=== PATIENT | male | born 1955 | race Hispanic/Latino ===

== ENCOUNTER 2023-12-27 12:41 | Emergency (ER) | payer OTHER, MEDICARE ==
[~2023-12-27] VITALS: Ht 165.1 cm; Wt 70.3 kg
[~2023-12-27 12:41] MED LIST: AMLODIPINE PO; FEBU40TA PO; FURO40TA5 PO; HYDRALAZINE PO; LANTUS SQ; METOPROLOL PO; NOVOLOG 70/30 SQ; PREG75 PO; RANITIDINE; TAMS0.4C32 PO
[2023-12-27 14:14] LABS: BASOPHILS # (AUTO) 0.03 K/uL (0.00-0.20); BASOPHILS % (AUTO) 0.3 % (0.0-5.0); EOSINOPHILS # (AUTO) 0.09 K/uL (0.00-0.70); EOSINOPHILS % (AUTO) 0.8 % (0.0-8.0); HEMATOCRIT 47.7 % (42-54); LYMPHOCYTES # (AUTO) 0.8 K/uL (1.0-4.8); LYMPHOCYTES % (AUTO) 7.1 % (21.0-51.0); MEAN CORPUSCULAR HEMOGLOBIN 29.7 pg (27.0-33.0); MEAN CORPUSCULAR HGB CONC 33.1 g/dL (32.0-36.0); MEAN CORPUSCULAR VOLUME 89.7 fL (79-99); MONOCYTES # (AUTO) 1.1 K/uL (0.1-1.0); MONOCYTES % (AUTO) 9.2 % (3.0-13.0); NEUTROPHILS # (AUTO) 9.6 K/uL (1.8-7.7); NEUTROPHILS % (AUTO) 81.7 % (40.0-77.0); PLATELET COUNT (AUTO) 189 K/uL (130-400); RED BLOOD CELL COUNT(AUTO) 5.32 MIL/uL (4.50-6.20); RED CELL DISTRIBUTION WIDTH 13.5 % (11.0-15.5); WHITE BLOOD COUNT (AUTO) 11.7 K/uL (4.8-10.8)
[2023-12-27 14:26] LABS: CREATININE 1.5 mg/dL (0.5-1.5); POTASSIUM 4.3 mmol/L (3.5-5.1)
[2023-12-27 14:27] LABS: INR <= 0.93 (0.85-1.15); PROTHROMBIN TIME 10.6 SEC (9.6-11.6)
[2023-12-27 14:29] LABS: PARTIAL THROMBOPLASTIN TIME 30.2 SEC (26.3-35.5)
[2023-12-27 14:31] LABS: BILIRUBIN,TOTAL 0.7 mg/dL (0.2-1.0); TOTAL PROTEIN, SERUM 7.2 g/dL (6.0-8.3)
[2023-12-27 15:01] LABS: WBC MORPHOLOGY CONSISTENT W/DIFF
[2023-12-27 15:29] VITALS: BP 144/7; PULSE 65; RESP 20; O2SAT 100
[2023-12-27] MEDS ORDERED: DICL100G32 TP (15:35)
== END 2023-12-27 15:57 | disposition home or self-care (01) ==
LOC: EDH 12:41
DX: S86.111A Strain of other muscle(s) and tendon(s) of posterior muscle group at lower leg level, right leg, initial encounter (principal); I10 Essential (primary) hypertension; E11.9 Type 2 diabetes mellitus without complications; E78.00 Pure hypercholesterolemia, unspecified; Z79.899 Other long term (current) drug therapy; Z90.49 Acquired absence of other specified parts of digestive tract; Z94.0 Kidney transplant status; Z88.8 Allergy status to other drugs, medicaments and biological substances; X58.XXXA Exposure to other specified factors, initial encounter; Y93.89 Activity, other specified; Y92.89 Other specified places as the place of occurrence of the external cause; Y99.8 Other external cause status
CPT/HCPCS: 36415; 80053; 85025; 85610; 85730; 93971

== ENCOUNTER → 2025-02-01 | Outpatient (CLI) | payer OTHER, MEDICARE ==
[~2025-02-01] MED LIST changes: +DICL100G32 TP
--- NOTE | 2025-02-01 14:46 | HMCIMG ---
LEFT HAND RADIOGRAPHS - 3 VIEWS INDICATION: Third digit injury COMPARISON: None FINDINGS: AP, lateral, and oblique views. No acute fracture of subluxation identified. Scaphoid bone is intact. Carpal alignment and ulnar variance is within normal limits. Extensive arterial wall calcific plaque. IMPRESSION: No evidence for fracture or subluxation.
== END | disposition home or self-care (01) ==
LOC: RAH 14:09
PROVIDERS: ATTEND Physician Assistant Medical
DX: M79.645 Pain in left finger(s) (principal); M79.642 Pain in left hand; I70.8 Atherosclerosis of other arteries
CPT/HCPCS: 73130

== ENCOUNTER 2025-05-03 08:31 | Inpatient (IN) | payer OTHER, MEDICARE ==
[~2025-05-03] VITALS: Ht 162.6 cm; Wt 71.1 kg
[2025-05-03] MEDS: 0.9%NACL 1000ML 1,000 ML IV ONE (09:23)
[2025-05-03 09:32] LABS: IMMATURE GRANULOCYTE ABSOLUTE 0.05 K/uL (0-1); NUCLEATED RED BLOOD CELLS 0.0 % (0.0-0.19); PLATELET COUNT (AUTO) 163 K/uL (130-400); RED BLOOD CELL COUNT(AUTO) 5.25 MIL/uL (4.50-6.20); RED CELL DISTRIBUTION WIDTH 14.1 % (11.0-15.5); WHITE BLOOD COUNT (AUTO) 9.4 K/uL (4.8-10.8)
[2025-05-03 09:45] LABS: ASPARTATE AMINOTRANSFERASE 51.0 U/L (10-37); CREATININE 1.7 mg/dL (0.5-1.3); GLOMERULAR FILTR. RATE CALC 43.0 mL/min (>90); GLUCOSE,RANDOM 92.0 mg/dL (70-105); SODIUM SERUM 140.0 mmol/L (136-145); TOTAL PROTEIN, SERUM 7.3 g/dL (6.0-8.3); UREA NITROGEN, BLOOD 31.0 mg/dL (7-18)
[2025-05-03 10:13] LABS: APPEARANCE,URINE CLEAR (CLEAR); GLUCOSE, URINE (UA) NEGATIVE (NEGATIVE); LEUKOCYTE ESTERASE ,URINE NEGATIVE Leu/uL (NEGATIVE); NITRATE,URINE NEGATIVE (NEGATIVE); OCCULT BLOOD,URINE SMALL (NEGATIVE)
[2025-05-03 10:19] LABS: ADD UA MICROSCOPIC YES; SQUAMOUS EPITHELIAL CELL,UR RARE /HPF (0-2)
--- NOTE | 2025-05-03 10:34 | ERN ---
General Chief Complaint: Diarrhea Stated Complaint: DIARRHEA Time Seen by MD: 08:35 Source: patient History of Present Illness Initial Comments Patient is a 69-year-old gentleman coming in complaining of diarrhea. Per patient he was outside working in the sun and felt very weak decided to come in for further evaluation. Patient does has a history of kidney transplant. He states he took some medication for diarrhea. Allergies: Coded Allergies: metformin (Unverified Allergy, Severe, KIDNEY PROBLEM, 06/28/14) Home Meds Active Scripts Diclofenac Sodium (Diclofenac Sodium) 3 % Gel..gram., 100 GM TP TID for MUSCLE PAIN, #60 GM Apply small amount to affected muscle 3 times a day and massage in for 7 days. Prov:DANIELLE CAMPUZANO PRESSFITTER 12/27/23 Reported Medications [Ranitidine] No Conflict Check, 150 MG PRN for PRN 06/28/14 [Hydralazine] No Conflict Check, 10 MG PO TID 06/28/14 [Novolog 70/30] No Conflict Check, SQ 06/28/14 [Lantus] No Conflict Check, SQ HS 06/28/14 Febuxostat (Uloric) 40 Mg Tablet, 40 MG PO PM, TAB 06/28/14 Pregabalin (Lyrica) 75 Mg Cap, 75 MG PO TID, CAP 06/28/14 Tamsulosin HCl (Tamsulosin HCl) 0.4 Mg Cap.er.24h, 0.4 MG PO DAILY, CAPSULE.DR 06/28/14 Furosemide (Furosemide) 40 Mg Tablet, 40 MG PO DAILY PRN for PRN, TAB 06/28/14 [Metoprolol] No Conflict Check, 100 MG PO PM 06/28/14 [Amlodipine] No Conflict Check, 10 MG PO DAILY 06/28/14 Past Medical History Past Medical History: Diabetes-Type II, High Cholesterol, Hypertension, Renal Disese, Renal Failure Medical History Other: HX OF HEMODIALYSIS Past Surgical History: Cholecystectomy, Other Surgical History Other: KIDNEY TRANSPLANT ROS Dictation CONSTITUTIONAL: No chills, no fever, no weakness, no diaphoresis, no malaise. HEAD/FACE: No signs of trauma. EENT: No eye pain, no blurred vision, no tearing, no double vision, no ear pain, no ear discharge, no nose pain, no nasal congestion, no throat pain, no throat swelling, no mouth pain. RESPIRATORY: No cough, no orthopnea, no SOB, no stridor, no wheezing. CARDIOVASCULAR: No chest pain, no edema, no palpitations, no syncope. GASTROINTESTINAL/ABDOMINAL: No abdominal pain, no constipation, diarrhea, no nausea, no vomiting. GENITOURINARY: No abnormal discharge, no dysuria, no frequent urination, no hematuria. No complaints of pain in the genitals. MUSCULOSKELETAL: No back pain, no gout, no joint pain, no joint swelling, no muscle pain, no muscle stiffness, no neck pain. INTEGUMENTARY: No change in color, no change in hair/nails, no dryness, no lesion, no lumps, no rash. NEUROLOGICAL/PSYCH: No anxiety, not depressed, no emotional problem, no headache, no numbness, no pre-existing deficit, no history of seizures, no tremors, no weakness. HEMATOLOGIC/LYMPHATIC: Not anemic, no history of blood clots, no apparent bleeding, no bruising, glands not swollen. All Systems Negative, Except as Noted. Physical Exam Physical Exam Dictation VITAL SIGNS: Reviewed. GENERAL APPEARANCE: Alert, oriented x3, no acute distress, . HEAD AND FACE: Non-traumatic. EYES: PERRL, pink conjunctivas, eyelid no trauma, anterior chamber clear. EARS: Pinnas intact and no signs of trauma or erythema. Ear canals clear and no discharge. TMs no erythema. NOSE: No discharge, no bleeding. OROPHARYNX: Mouth normal, teeth no caries, tongue pink. Pharynx clear, no erythema. Tonsils no exudates, no abscesses noted. Mucous membrane moist. NECK: Supple, non-tender, no thyromegaly, no masses, no JVD, no bruits. BREAST: Deferred. CHEST: No tenderness, no crepitus, no paradoxical movement, no retractions. LUNGS: Clear, well-ventilated, symmetric, no rales, no wheezing, no rhonchi, no stridor, good breath sounds bilaterally. HEART: Regular rate, regular rhythm, no murmur, no gallops. VASCULAR: No peripheral edema. ABDOMEN: Soft, positive bowel sounds, nondistended, no guarding, nontender, no rebound, no masses no hepatomegaly, no splenomegaly, no Lu's sign, no hernias. RECTAL: Deferred. GENITAL: Deferred. NEUROLOGICAL: Normal speech, gross motor function intact, gross sensory function intact. MUSCULOSKELETAL: Neck nontender, full range of motion, back nontender, full range of motion. EXTREMITIES: Nontender, full range of motion. SKIN: Color pink, dry, no turgor, no rash, no lacerations, no abrasions, no contusions. LYMPHATICS: Deferred. Results Laboratory and Microbiology Lab and Micro Result Laboratory Tests Test 05/03/25 09:24 05/03/25 09:55 White Blood Count 9.4 K/uL (4.8-10.8) Red Blood Count 5.25 MIL/uL (4.50-6.20) Hemoglobin 15.9 g/dL (14.0-18.0) Hematocrit 48.9 % (42-54) Mean Corpuscular Volume 93.1 fL (79-99) Mean Corpuscular Hemoglobin 30.3 pg (27.0-33.0) Mean Corpuscular Hemoglobin Concent 32.5 g/dL (32.0-36.0) Red Cell Distribution Width 14.1 % (11.0-15.5) Platelet Count 163 K/uL (130-400) Mean Platelet Volume 10.1 fL (7.5-10.5) Immature Granulocyte % (Auto) 0.5 % (0-1) Neutrophils (%) (Auto) 71.9 % (40.0-77.0) Lymphocytes (%) (Auto) 11.0 % (21.0-51.0) L Monocytes (%) (Auto) 14.6 % (3.0-13.0) H Eosinophils (%) (Auto) 1.9 % (0.0-8.0) Basophils (%) (Auto) 0.1 % (0.0-5.0) Neutrophils # (Auto) 6.8 K/uL (1.8-7.7) Lymphocytes # (Auto) 1.0 K/uL (1.0-4.8) Monocytes # (Auto) 1.4 K/uL (0.1-1.0) H Eosinophils # (Auto) 0.18 K/uL (0.00-0.70) Basophils # (Auto) 0.01 K/uL (0.00-0.20) Absolute Immature Granulocyte (auto 0.05 K/uL (0-1) Nucleated Red Blood Cells 0.0 % (0.0-0.19) Sodium Level 140 mmol/L (136-145) Potassium Level 4.8 mmol/L (3.5-5.1) Chloride Level 107 mmol/L (101-111) Carbon Dioxide Level 27 mmol/L (21-32) Blood Urea Nitrogen 31 mg/dL (7-18) H Creatinine 1.7 mg/dL (0.5-1.3) H Glomerular Filtration Rate Calc 43 mL/min (>90) Random Glucose 92 mg/dL (70-105) Total Calcium 9.6 mg/dL (8.5-10.1) Total Bilirubin 0.8 mg/dL (0.2-1.0) Aspartate Amino Transf (AST/SGOT) 51 U/L (10-37) H Alanine Aminotransferase (ALT/SGPT) 45 U/L (12-78) Alkaline Phosphatase 88 U/L (50-136) Total Protein 7.3 g/dL (6.0-8.3) Albumin 4.0 g/dL (3.5-5.0) Urine Color YELLOW (YELLOW) Urine Appearance CLEAR (CLEAR) Urine pH 5.5 (5.0-8.0) Urine Specific [place] 1.033 (1.001-1.031) Urine Protein 100 mg/dL (NEGATIVE) H Urine Glucose (UA) NEGATIVE mg/dL (NEGATIVE) Urine Ketones NEGATIVE mg/dL (NEGATIVE) Urine Occult Blood SMALL (NEGATIVE) H Urine Nitrate NEGATIVE (NEGATIVE) Urine Bilirubin NEGATIVE mg/dL (NEGATIVE) Urine Urobilinogen 0.2 mg/dL (0.2-1.0) Urine Leukocyte Esterase NEGATIVE Jose Eduardo/uL Urine RBC 0-1 /HPF (0-1) Urine WBC 2-5 /HPF (0-1) H Urine Squamous Epithelial Cells RARE /HPF (0-2) Urine Bacteria None /HPF (None Seen) Labs Reviewed?: Yes MDM MDM: Differential diagnosis: Diarrhea, АЛЕКСАНДР, dehydration, viral gastroenteritis, history of came transplant, Rationale: Tests considered and ordered secondary to shared decision making include: Previous outside records reviewed: Old ER visits. Risk of complication and/or morbidity or mortality of patient management: None Medications-Per medication reconciliation Need for hospitalization: Patient does meet criteria for hospitalization. Need for emergency major/minor surgery: No There are no social concerns with this patient. Prescription drug management Prescriptions will include symptomatic care Patient's prior external medical records from other ER visits were reviewed by me as indicated. Prior testing and results from previous visits were reviewed. Prior tests were taken into account with medical decision making and resource utilization, independent historian/historians were used to obtain complete medical history. I independently interpreted the test that were performed, results were reviewed by me and considered findings on radiology if ordered. Medical management and examination interpretation discussions were had by me with other qualified healthcare professionals as indicated for the patient's care. ED Course Orders Procedure Category Date Status Time Cbc With Differential LAB 05/03/25 Complete 08:45 Comprehensive LAB 05/03/25 Complete Metabolic Panel 08:45 Urinalysis Profile LAB 05/03/25 Complete 08:45 0.9%Nacl 1000ml (Ns PHA 05/03/25 Complete 1000ml) 09:00 Ondansetron 4mg Inj PHA 05/03/25 Complete (Zofran 4mg Inj) 09:00 Pantoprazole 40mg Inj PHA 05/03/25 Complete (Protonix 40mg Inj 09:00 Current Medications Medications (Trade) Dose Ordered Sig/Jamarcus Route PRN Reason Start Time Stop Time Status Last Admin Dose Admin Ondansetron HCl (zoFRAN 4MG INJ) 4 mg ONCE ONCE IVP 05/03/25 09:00 05/03/25 09:01 DC 05/03/25 09:23 Pantoprazole Sodium (PROTonix 40MG INJ) 40 mg ONCE ONCE IVP 05/03/25 09:00 05/03/25 09:01 DC 05/03/25 09:23 Sodium Chloride 1,000 ml @ 0 mls/hr ONCE ONCE IV 05/03/25 09:00 05/03/25 09:01 DC 05/03/25 09:23 Vital Signs Date Time Temp Pulse Resp B/P (MAP) Pulse Ox O2 Delivery O2 Flow Rate FiO2 05/03/25 09:31 97.7 71 16 141/75 99 Room Air* 0 21 05/03/25 08:32 98.2 61 16 164/70 96 Room Air 0 DX & DISP Disposition: Inpatient Decision to Admit Time: 10:43 Departure Impression: Primary Impression: Viral gastroenteritis Additional Impressions: Dehydration, АЛЕКСАНДР (acute kidney injury), History of kidney transplant Condition: Stable Referrals: NEERU CONTRERAS (PCP) MERLY HILL MD May 03, 2025 10:34
--- NOTE | 2025-05-03 11:27 | HP ---
[facility] HISTORY AND PHYSICAL Date of Service: May 03, 2025 Time of Service: 11:18 HISTORY OF PRESENT ILLNESS: 69-year-old male with past medical history of hypertension, history of renal transplant in 2020 in [place] previously on dialysis, diabetes mellitus type 2 presented to the hospital secondary to diarrhea. Patient states around two days ago he went to work with his friend outside. 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 He felt he might have over exerted himself. Since then he has noted loose watery stools at home. He has had around 10 episodes of diarrhea which is nonbloody. He denies any melena, hematochezia, hematemesis. Additionally he has felt nauseated without any episodes of vomiting. He has been drinking liquids at home. He gets diarrhea after he eats. He denies any sick contacts, chest pain, shortness of breath cough, dysuria. Complains of mild abdominal discomfort primarily located in the left upper quadrant. He took one dose of amoxicillin yesterday. Denied any recent antibiotic therapy otherwise. He takes tacrolimus, prednisone, mycophenolate at home. He has been followed by Dr Alcaraz who is his primary ground worker. He denied any falls, syncopal episode. He has been feeling weak since he has not been eating very well since diarrhea started. Additionally also took a dose of Imodium yesterday. Secondary to non improving symptoms patient thereafter came to the hospital for further evaluation. Labs in the ED were notable for white count of 9.4, hemoglobin was 15.9, platelet count was 163 K, sodium was 140, potassium was 4.8, creatinine was 1.7, BUN was 31, AST was mildly 51. In the ED patient received 1 L NS, pantoprazole, Zofran. REVIEW OF SYSTEMS CONSTITUTIONAL: Denies fevers, chills, or night sweats. No unintentional weight loss reported. NEUROLOGICAL: Denies headache, amaurosis fugax, motor weakness, sensory deficit, vertigo/spinning sensation, gait abnormalities, or tremors. ENT: No hearing loss, otalgia, otorrhea, rhinitis, rhinorrhea, hoarseness, or sore throat. CARDIOVASCULAR: Denies any exertional angina, dyspnea on exertion, orthopnea, paroxysmal nocturnal dyspnea, palpitations, life-threatening arrhythmias, claudication. PULMONARY: Denies any shortness of breath, cough, phlegm/sputum, hemoptysis, pleuritic chest pain. SLEEP: Denies morning headaches, daytime somnolence or napping. Denies difficulty falling asleep, staying asleep, waking from sleep. Denies knowledge of snoring. GASTROINTESTINAL: Positive for diarrhea, nausea, abdominal pain. Denied any vomiting, melena, hematochezia, hematemesis. GENITOURINARY: Denies frequency, urgency, nocturia, hematuria or incontinence (Storage/Irritative symptoms.) Low urinary stream, straining to void, urinary intermittency or hesitancy, splitting of the voiding stream, terminal dribbling. ENDOCRINOLOGIC: Denies polyuria, polydipsia, polyphagia or heat/cold intolerances. HEMATOLOGIC: Denies thrombophilia/previous clots, or coagulopathy/bleeding disorders. ONCOLOGIC: Denies personal history of malignancy. DERMATOLOGIC: Denies rashes or pruritus. PSYCHIATRIC: Denies any suicidal or homicidal ideation. Denies hallucinations. PAST MEDICAL HISTORY: Hypertension, history of renal transplant, history of dialysis, diabetes mellitus type 2 PAST SURGICAL HISTORY: History of renal transplant, history of AV fistula in the left arm PAST SOCIAL HISTORY: Denied any smoking, alcohol, drug use FAMILY HISTORY: Denied any pertinent family history Coded Allergies: metformin (Unverified Allergy, Severe, KIDNEY PROBLEM, 06/28/14) PHYSICAL EXAM GENERAL APPEARANCE: The patient is awake, alert, and oriented, in no acute cardiopulmonary distress. NEUROLOGICAL: Cranial nerves II-XII grossly intact. Motor is 5/5 in bilateral upper and lower extremities proximal to distal. No sensory deficits. HEENT: Face is symmetric. Pupils are equal and reactive. Extraocular movements are intact. NECK: Supple. No JVD. No thyromegaly. No submental, submandibular, pre- /postauricular, occipital or supraclavicular lymphadenopathy. CHEST: Normal chest expansion. No Telemetry. LUNGS: Absence of any rales, rhonchi or any wheezing. CARDIOVASCULAR: Regular. S1 and S2 normal. No appreciable rubs, murmurs or gallops. ABDOMEN: Soft, nontender, and nondistended. There is no rebound, voluntary guarding, or rigidity. : Deferred. No Jasso. EXTREMITIES: Non-edematous and not cyanotic. No clubbing. Good capillary refill. SKIN: No skin breakdown. Vital Sign (Last 24 Hours) 05/03/25 09:31 Temp 97.7 Pulse 71 Resp 16 B/P (MAP) 141/75 Pulse Ox 99 O2 Delivery Room Air* O2 Flow Rate 0 FiO2 21 LABS: Laboratory: Test 05/03/25 09:55 05/03/25 09:24 Range/Units Urine Color YELLOW YELLOW Urine Appearance CLEAR CLEAR Urine pH 5.5 5.0-8.0 Urine Specific [place] 1.033 H 1.001-1.031 Urine Protein 100 H NEGATIVE mg/dL Urine Glucose (UA) NEGATIVE NEGATIVE mg/dL Urine Ketones NEGATIVE NEGATIVE mg/dL Urine Occult Blood SMALL H NEGATIVE Urine Nitrate NEGATIVE NEGATIVE Urine Bilirubin NEGATIVE NEGATIVE mg/dL Urine Urobilinogen 0.2 0.2-1.0 mg/dL Urine Leukocyte Esterase NEGATIVE NEGATIVE Jose Eduardo/uL Urine RBC 0-1 0-1 /HPF Urine WBC 2-5 H 0-1 /HPF Urine Squamous Epithelial Cells RARE 0-2 /HPF Urine Bacteria None None Seen /HPF White Blood Count 9.4 4.8-10.8 K/uL Red Blood Count 5.25 4.50-6.20 MIL/uL Hemoglobin 15.9 14.0-18.0 g/dL Hematocrit 48.9 42-54 % Mean Corpuscular Volume 93.1 79-99 fL Mean Corpuscular Hemoglobin 30.3 27.0-33.0 pg Mean Corpuscular Hemoglobin Concent 32.5 32.0-36.0 g/dL Red Cell Distribution Width 14.1 11.0-15.5 % Platelet Count 163 130-400 K/uL Mean Platelet Volume 10.1 7.5-10.5 fL Immature Granulocyte % (Auto) 0.5 0-1 % Neutrophils (%) (Auto) 71.9 40.0-77.0 % Lymphocytes (%) (Auto) 11.0 L 21.0-51.0 % Monocytes (%) (Auto) 14.6 H 3.0-13.0 % Eosinophils (%) (Auto) 1.9 0.0-8.0 % Basophils (%) (Auto) 0.1 0.0-5.0 % Neutrophils # (Auto) 6.8 1.8-7.7 K/uL Lymphocytes # (Auto) 1.0 1.0-4.8 K/uL Monocytes # (Auto) 1.4 H 0.1-1.0 K/uL Eosinophils # (Auto) 0.18 0.00-0.70 K/uL Basophils # (Auto) 0.01 0.00-0.20 K/uL Absolute Immature Granulocyte (auto 0.05 0-1 K/uL Nucleated Red Blood Cells 0.0 0.0-0.19 % Sodium Level 140 136-145 mmol/L Potassium Level 4.8 3.5-5.1 mmol/L Chloride Level 107 101-111 mmol/L Carbon Dioxide Level 27 21-32 mmol/L Blood Urea Nitrogen 31 H 7-18 mg/dL Creatinine 1.7 H 0.5-1.3 mg/dL Glomerular Filtration Rate Calc 43 >90 mL/min Random Glucose 92 70-105 mg/dL Total Calcium 9.6 8.5-10.1 mg/dL Total Bilirubin 0.8 0.2-1.0 mg/dL Aspartate Amino Transf (AST/SGOT) 51 H 10-37 U/L Alanine Aminotransferase (ALT/SGPT) 45 12-78 U/L Alkaline Phosphatase 88 50-136 U/L Total Protein 7.3 6.0-8.3 g/dL Albumin 4.0 3.5-5.0 g/dL Current Medications Medications (Trade) Dose Ordered Sig/Jamarcus Route PRN Reason Start Time Stop Time Status Last Admin Dose Admin Acetaminophen (TYLenol 500MG TAB) 500 mg Q6H PRN PO MILD PAIN (1-3) 05/03/25 11:30 06/02/25 11:29 Ceftriaxone Sodium (ROCEphine 1G INJ) 1 gm Q24H IVPB 05/03/25 11:30 05/13/25 11:29 Famotidine (Pepcid 20mg Vial) 20 mg Q24H IV 05/03/25 21:00 06/02/25 20:59 Hydralazine HCl (APRESOLine 20MG INJ) 10 mg Q6H PRN IV ADMINISTER FOR SBP > 180 05/03/25 11:30 06/02/25 11:29 Ondansetron HCl (zoFRAN 4MG INJ) 4 mg Q6H PRN IVP NAUSEA/VOMITING 05/03/25 11:30 06/02/25 11:29 UNV Sodium Chloride 1,000 ml @ 100 mls/hr Q10H IV 05/03/25 11:30 06/02/25 11:29 DIAGNOSTICS / RADIOLOGY: [ ] ASSESSMENT: Suspected gastroenteritis Acute kidney injury likely prerenal History of renal transplant Immunocompromised status History of dialysis Dehydration Hypertension Diabetes mellitus type 2 PLAN: - patient to be admitted to [facility] with tele -in reference to gastroenteritis. Check stool PCR panel, C diff, ova and parasite. Patient will be started on Rocephin. We will obtain a CT abdomen pelvis. The patient will be started on NS for gentle hydration -obtain nephrology consultation. We will defer to Nephrology regarding continuing with anti rejection medication -we will request ID consultation -obtain home medications which will be reconciled once available -check procalcitonin, CRP, A1c -further orders per hospitalization course. Advanced Care Planning Which of the following were discussed: Hospice care: Yes __ No _x_ Therapeutic options: Yes __ No __ Advance directives: Yes __ No __ Other discussions: Pt is full code Discussed with who?: patient (Patient, family or surrogates) Voluntary nature of this service was explained to the patient? Yes _x_ No __ Amount of time spent: 20 minutes TOO Harkins MD, MD May 03, 2025 11:27
[2025-05-03 11:53] LABS: CREATINE KINASE, TOTAL 195.0 U/L (21-232)
[2025-05-03] MEDS ORDERED: GLUCAGON 1MG KIT 1 MG ML IM PRN (12:00)
[2025-05-03] MEDS ORDERED: DEXTROSE 50%-WATER 50 ML DISP.SYRIN IV PRN (12:00)
--- NOTE | 2025-05-03 12:23 | HMCIMG ---
EXAM: CT Abdomen and Pelvis Without IV contrast CLINICAL HISTORY: GASTROENTERITIS, History of RENAL TRANSPLANT TECHNIQUE: Axial computed tomography images of the abdomen and pelvis without intravenous contrast. CONTRAST: No IV contrast. COMPARISON: None provided. FINDINGS: LUNG BASES: There is subtle subpleural interlobular septal thickening at the posterobasal segment of the bilateral lower lobe. No pleural effusions are seen. LIVER: Hepatic steatosis. GALLBLADDER AND BILE DUCTS: Gallbladder not visualised separately, suggestive of a history of surgery. No biliary ductal dilatation is evident. PANCREAS: Unremarkable. SPLEEN: Unremarkable. ADRENAL GLANDS: Unremarkable. KIDNEYS, URETERS, AND BLADDER: Bilateral kidneys noted in the bilateral lumbar region, appearing atrophied with lobulated surfaces, suggestive of chronic kidney disease. Approximately 20 x 16 mm-sized simple cyst at the lower pole of the right kidney. The transplanted kidney measures approximately 10 x 4.9 cm and is visualized at the right iliac fossa region. There is no hydronephrosis or hydroureter. No urinary calculi are seen. STOMACH AND BOWEL: Unremarkable appearance of the stomach and bowel. No evidence of bowel obstruction. No evidence suggesting enteritis or colitis. APPENDIX: No evidence of acute appendicitis on CT examination. PERITONEUM: No free fluid. No free air. LYMPH NODES: No lymphadenopathy is evident. REPRODUCTIVE: Unremarkable as visualized. VASCULATURE: No evidence of abdominal aortic aneurysm. BONES: Osseous degenerative changes in the form of marginal osteophytes and vacuum phenomenon. Endplate degenerative changes involving the opposing articular surface of the L3-L4 vertebral body with subchondral sclerosis and vacuum phenomenon., Loss of normal lumbar lordosis No aggressive appearing osseous lesion. No acute osseous pathology evident.IMPRESSION: 1. No acute intraabdominal or pelvic pathology. 2. Bilateral atrophic [place] kidneys with lobulated surfaces, consistent with chronic kidney disease. Right iliac fossa transplant kidney, measuring 10 x 4.9 cm. /[place]
--- NOTE | 2025-05-03 12:26 | NUR ---
PENDING SON TO BRING HOME MEDICATIONS.
[2025-05-03] MEDS: 0.9%NACL 1000ML 1,000 ML IV SCH (12:27)
[2025-05-03 13:32] LABS: CREATININE,URINE RANDOM 337.94 mg/dL (30-135)
[2025-05-03] MEDS: amLODIPine 5 MG TAB PO ONE (13:46)
--- NOTE | 2025-05-03 15:21 | NUR ---
DCP: HOME Pt currently lives with his dgt in her home. Pt uses a walker at home to ambulate. Pt states that he has a provider that goes to assist him 4hrs a day with home management and meals. Pt states that he is able to bathe on his own. PCP is Dr. Christiano Lin and uses [facility] for any RX needs. At [place] pt will want to go home and family can assist with transportation. Addendum: 05/03/25 at 1522 by PHOEBE GREEN SS Amended: Links added.
--- NOTE | 2025-05-03 15:25 | CONS ---
NEPHROLOGY CONSULTATION NOTE Date/Time Patient Seen: May 03, 2025 [id number] Reason for Consultation: Acute renal failure, renal transplant HISTORY OF PRESENT ILLNESS: This is a 69-year-old male with past medical history of hypertension, history of renal transplant in 2020 in [place] previously on dialysis, diabetes mellitus type 2 He presented to the hospital secondary to diarrhea. He takes tacrolimus, prednisone, mycophenolate at home. Pending home medication list. Imaging studies were noted He was noted with elevated BUN/creatinine We are consulted for renal failure Renal function remains elevated Electrolytes are stable UA was noted He was seen in the emergency room, in no acute distress No family at the bedside Prognosis remains guarded REVIEW OF SYSTEMS: GENERAL: Positive for diarrhea and generalized weakness NEUROLOGIC: Negative for any blurry vision, blind spots, double vision, facial asymmetry, dysphagia, dysarthria, hemiparesis, hemisensory deficits, vertigo, ataxia. HEENT: Negative for any head trauma, neck trauma, neck stiffness, photophobia, phonophobia, sinusitis, rhinitis. CARDIAC: Negative for any chest pain, dyspnea on exertion, paroxysmal nocturnal dyspnea, peripheral edema. PULMONARY: Negative for any shortness of breath, wheezing, COPD, or TB exposure. GASTROINTESTINAL: Negative for any abdominal pain, nausea, vomiting, bright red blood per rectum, melena. GENITOURINARY: Negative for any dysuria, hematuria, incontinence. INTEGUMENTARY: Negative for any rashes, cuts, insect bites. RHEUMATOLOGIC: Negative for any joint pains, photosensitive rashes, history of vasculitis or kidney problems. HEMATOLOGIC: Negative for any abnormal bruising, frequent infections or bleeding. PAST MEDICAL HISTORY: Diabetes mellitus type 2 End-stage renal disease S/p renal transplant Hypertension PAST SURGICAL HISTORY: Renal transplant Av fistula PAST SOCIAL HISTORY: Denies use of alcohol, tobacco or illicit drug FAMILY HISTORY: Noncontributory PHYSICAL EXAM: GENERAL: Alert and oriented x 3. No acute distress. Well-nourished. EYES: EOMI. Anicteric. HENT: Moist mucous membranes. No scleral icterus. No cervical lymphadenopathy. LUNGS: Clear to auscultation bilaterally. No accessory muscle use. CARDIOVASCULAR: Regular rate and rhythm. No murmur. No JVD. ABDOMEN: Soft, non-tender and non-distended. No palpable masses. EXTREMITIES: No edema. Non-tender. SKIN: No rashes or lesions. Warm. NEUROLOGIC: No focal neurological deficits. CN II-XII grossly intact, but not individually tested. PSYCHIATRIC: Cooperative. Appropriate mood and affect. MEDICATIONS: [ ] Current Medications Medications (Trade) Dose Ordered Sig/Jamarcus Route PRN Reason Start Time Stop Time Status Last Admin Dose Admin Acetaminophen (TYLenol 500MG TAB) 500 mg Q6H PRN PO MILD PAIN (1-3) 05/03/25 11:30 06/02/25 11:29 Amlodipine Besylate (NorvASC 5MG TAB) 5 mg DAILY PO 05/04/25 09:00 06/03/25 08:59 Ceftriaxone Sodium (ROCEphine 1G INJ) 1 gm Q24H IVPB 05/03/25 11:30 05/13/25 11:29 05/03/25 12:45 1 GM Dextrose (D50w) 50 ml AD PRN IV HYPOGLYCEMIA PROTOCOL 05/03/25 12:00 06/02/25 11:59 Famotidine (Pepcid 20mg Vial) 20 mg Q24H IV 05/03/25 21:00 05/03/25 14:58 DC Glucagon (Glucagon 1mg Kit) 1 mg AD PRN IM HYPOGLYCEMIA PROTOCOL 05/03/25 12:00 06/02/25 11:59 Hydralazine HCl (APRESOLine 20MG INJ) 10 mg Q6H PRN IV ADMINISTER FOR SBP > 180 05/03/25 11:30 06/02/25 11:29 Insulin Human Regular (humuLIN R 100 UNIT/ML 3ML) INSULIN SLIDING SCAL... ACHS SQ 05/03/25 16:30 06/02/25 16:29 Ondansetron HCl (zoFRAN 4MG INJ) 4 mg Q6H PRN IVP NAUSEA/VOMITING 05/03/25 11:30 06/02/25 11:29 Pantoprazole Sodium (PROTonix 40MG INJ) 40 mg DAILY IVP 05/04/25 09:00 06/03/25 08:59 Sodium Chloride 1,000 ml @ 100 mls/hr Q10H IV 05/03/25 11:30 06/02/25 11:29 05/03/25 12:27 100 MLS/HR Vital Signs (last 8hr) Date Time Temp Pulse Resp B/P (MAP) Pulse Ox O2 Delivery O2 Flow Rate FiO2 05/03/25 14:53 98.1 73 18 148/88 96 Room Air* 0 21 05/03/25 09:31 97.7 71 16 141/75 99 Room Air* 0 21 05/03/25 08:32 98.2 61 16 164/70 96 Room Air 0 DIAGNOSTICS / RADIOLOGY: [facility] [address] [place] [address] IMAGING REPORT Signed PATIENT: FABIOLA CANAS MR#: [id number] : 1955 SEX: M AGE: 69 LOCATION: [facility] ORDER 110 STATUS: ADM IN REPORT#: [id number] SERVICE 110 REASON: GASTROENTERITIS, History of RENAL TRANSPLANT ORDERING PHYSICIAN: TOO TOMAS MD PROCEDURE: ABD PEL WO - CT ABDOMEN/PELVIS W/O CONTRAST EXAM: CT Abdomen and Pelvis Without IV contrast CLINICAL HISTORY: GASTROENTERITIS, History of RENAL TRANSPLANT TECHNIQUE: Axial computed tomography images of the abdomen and pelvis without intravenous contrast. CONTRAST: No IV contrast. COMPARISON: None provided. FINDINGS: LUNG BASES: There is subtle subpleural interlobular septal thickening at the posterobasal segment of the bilateral lower lobe. No pleural effusions are seen. LIVER: Hepatic steatosis. GALLBLADDER AND BILE DUCTS: Gallbladder not visualised separately, suggestive of a history of surgery. No biliary ductal dilatation is evident. PANCREAS: Unremarkable. SPLEEN: Unremarkable. ADRENAL GLANDS: Unremarkable. KIDNEYS, URETERS, AND BLADDER: Bilateral kidneys noted in the bilateral lumbar region, appearing atrophied with lobulated surfaces, suggestive of chronic kidney disease. Approximately 20 x 16 mm-sized simple cyst at the lower pole of the right kidney. The transplanted kidney measures approximately 10 x 4.9 cm and is visualized at the right iliac fossa region. There is no hydronephrosis or hydroureter. No urinary calculi are seen. STOMACH AND BOWEL: Unremarkable appearance of the stomach and bowel. No evidence of bowel obstruction. No evidence suggesting enteritis or colitis. APPENDIX: No evidence of acute appendicitis on CT examination. PERITONEUM: No free fluid. No free air. LYMPH NODES: No lymphadenopathy is evident. REPRODUCTIVE: Unremarkable as visualized. VASCULATURE: No evidence of abdominal aortic aneurysm. BONES: Osseous degenerative changes in the form of marginal osteophytes and vacuum phenomenon. Endplate degenerative changes involving the opposing articular surface of the L3-L4 vertebral body with subchondral sclerosis and vacuum phenomenon., Loss of normal lumbar lordosis No aggressive appearing osseous lesion. No acute osseous pathology evident.IMPRESSION: 1. No acute intraabdominal or pelvic pathology. 2. Bilateral atrophic [place] kidneys with lobulated surfaces, consistent with chronic kidney disease. Right iliac fossa transplant kidney, measuring 10 x 4.9 cm. /[place] DICTATED BY: ROSALINE DIANE Jr., MD DATE: 05/03/251322 ELECTRONICALLY SIGNED BY: ROSALINE DIANE Jr., MD DATE: 05/03/251322 LABORATORY: [ ] Hematology Labs: Test 05/03/25 09:24 Range/Units White Blood Count 9.4 4.8-10.8 K/uL Red Blood Count 5.25 4.50-6.20 MIL/uL Hemoglobin 15.9 14.0-18.0 g/dL Hematocrit 48.9 42-54 % Mean Corpuscular Volume 93.1 79-99 fL Mean Corpuscular Hemoglobin 30.3 27.0-33.0 pg Mean Corpuscular Hemoglobin Concent 32.5 32.0-36.0 g/dL Red Cell Distribution Width 14.1 11.0-15.5 % Platelet Count 163 130-400 K/uL Mean Platelet Volume 10.1 7.5-10.5 fL Immature Granulocyte % (Auto) 0.5 0-1 % Neutrophils (%) (Auto) 71.9 40.0-77.0 % Lymphocytes (%) (Auto) 11.0 L 21.0-51.0 % Monocytes (%) (Auto) 14.6 H 3.0-13.0 % Eosinophils (%) (Auto) 1.9 0.0-8.0 % Basophils (%) (Auto) 0.1 0.0-5.0 % Neutrophils # (Auto) 6.8 1.8-7.7 K/uL Lymphocytes # (Auto) 1.0 1.0-4.8 K/uL Monocytes # (Auto) 1.4 H 0.1-1.0 K/uL Eosinophils # (Auto) 0.18 0.00-0.70 K/uL Basophils # (Auto) 0.01 0.00-0.20 K/uL Absolute Immature Granulocyte (auto 0.05 0-1 K/uL Nucleated Red Blood Cells 0.0 0.0-0.19 % Chemistry Labs: Test 05/03/25 09:24 Range/Units Sodium Level 140 136-145 mmol/L Potassium Level 4.8 3.5-5.1 mmol/L Chloride Level 107 101-111 mmol/L Carbon Dioxide Level 27 21-32 mmol/L Blood Urea Nitrogen 31 H 7-18 mg/dL Creatinine 1.7 H 0.5-1.3 mg/dL Glomerular Filtration Rate Calc 43 >90 mL/min Random Glucose 92 70-105 mg/dL Hemoglobin A1c 7.0 H 4.0-6.0 % Estimated Average Glucose (eAG) 154 H 70-126 mg/dL Total Calcium 9.6 8.5-10.1 mg/dL Total Bilirubin 0.8 0.2-1.0 mg/dL Aspartate Amino Transf (AST/SGOT) 51 H 10-37 U/L Alanine Aminotransferase (ALT/SGPT) 45 12-78 U/L Alkaline Phosphatase 88 50-136 U/L Total Creatine Kinase 195 21-232 U/L C-Reactive Protein, Quantitative 7.40 H 0.5-3.0 mg/L Total Protein 7.3 6.0-8.3 g/dL Albumin 4.0 3.5-5.0 g/dL Procalcitonin 0.36 0.05-0.5 ng/mL ASSESSMENT: Suspected gastroenteritis Acute kidney injury History of renal transplant Immunocompromised status Dehydration Hypertension Diabetes mellitus type 2 PLAN: Labs, diagnostic, radiologic exams reviewed and interpreted by myself and supervising physician. We have reviewed external records in detail Obtain UA, urine electrolytes, urine creatinine, urine osmolality and ultrasound of transplant kidney Resume immunosuppressive medication Please list home medication Continue IV fluids Require close monitoring of renal function and electrolytes Order CBC, CMP, uric acid, TSH and electrolytes in am Renal diabetic diet BiPAP as necessary, for respiratory distress Monitor blood pressure adjust medication doses as needed Avoid hypotensive episodes May use Dilaudid 0.5 mg IV every 6 hours as needed for severe pain Monitor blood sugars Strict intake, output, and daily weight should be monitored Please renally adjust medications Avoid nephrotoxic and nonsteroidal drugs Avoid contrast if possible Will continue to monitor renal function, anemia, electrolytes Treatment plan discussed with patient Questions were answered We have discussed with the other team physicians in detail about the care plan We will continue to monitor the patient closely Thank you for allowing us to participate in the care of this patient ATTESTATION BY PHYSICIAN I have seen and examined the patient. I reviewed the documentation, medical decision making, and treatment plan as noted by the mid-level provider above. I agree with the findings and plan of care. SCOTTY KELLER MD, [facility] May 03, 2025 15:24
--- NOTE | 2025-05-03 17:08 | HMCIMG ---
EXAM: Ultrasound renal transplant with doppler imaging INDICATION: Renal transplant TECHNIQUE: Ding scale and color doppler images with spectral doppler of the kidney. REFERENCE EXAMINATION: None FINDINGS: Atrophy of the [place] kidneys with right renal cyst. Kidney demonstrates no hydronephrosis or perinephric fluid collection. Bladder appears unremarkable. The main renal artery is patent with peak systolic velocities as follows: renal hilum - 157 cm/s; renal mid - 114 cm/s; renal anas - 79 cm/s; intrarenal resistive indices range from 0.72 to 0.75 Peak systolic velocity in the external iliac artery is 111 cm/s. Main renal vein and external iliac vein are patent. IMPRESSION: Transplanted renal vasculature is patent /Gravel Switch
--- NOTE | 2025-05-03 17:40 | NUR ---
RECEIVED REPORT FROM EDWIGE BERG. PT WILL BE TRANSFERRING TO ROOM 304.
[2025-05-03 18:15] VITALS: BP 168/73; PULSE 74; RESP 19; TEMP 98.2
[2025-05-03] MEDS ORDERED: KETO-108 OP (18:57)
[2025-05-03] MEDS ORDERED: ACET-2743 PO (18:57)
[2025-05-03] MEDS ORDERED: AMLO-257 PO (18:57)
[2025-05-03] MEDS ORDERED: PRED5TAB PO (18:57)
[2025-05-03] MEDS ORDERED: ROSU5TAB51 PO (18:57)
[2025-05-03] MEDS ORDERED: TACR1CAP10 PO (18:57)
[2025-05-03] MEDS ORDERED: CARV25TA PO (18:57)
[2025-05-03] MEDS ORDERED: TAMS-55 PO (18:57)
[2025-05-03] MEDS ORDERED: PANT40TA54 PO (18:57)
[2025-05-03 18:59] VITALS: BP 168/73
[2025-05-03 19:05] VITALS: O2SAT 97
[2025-05-03 19:33] VITALS: PULSE 74; RESP 20; TEMP 97.8
[2025-05-03 21:00] VITALS: BP 180/60; PULSE 89
[2025-05-03] MEDS ORDERED: FAMOTIDINE 20MG VIAL IV SCH (21:00)
[2025-05-03] MEDS: NITROGLYCERIN 1GM OINT 1 INCH/1GM TD ONE (21:50)
[2025-05-03 23:23] VITALS: BP 120/60; PULSE 90; RESP 19; TEMP 98.4
[2025-05-04] VITALS (7 sets, daily range): BP systolic 110–143; BP diastolic 59–69; PULSE 71–84; RESP 17–20; TEMP 96.8–98.3; O2SAT 96
--- NOTE | 2025-05-04 01:48 | NUR ---
nurse note patient alert and oriented times 3. plan of care discussed with him and his son, prabhu. patient having high blood pressure tonight and a headache. pagereny tobias,yola and he ordered morphine 2 mg q 6 hrs and nitropaste. the patient is ambulatory without issues. he has slept about 6 hours tonight. his left arm fistula is not functioning. call light within reach, bed alarm on, 2 side rails up. will continue to monitor patient.
[2025-05-04 04:14] LABS: IMMATURE GRANULOCYTE ABSOLUTE 0.04 K/uL (0-1); NUCLEATED RED BLOOD CELLS 0.0 % (0.0-0.19); PLATELET COUNT (AUTO) 144 K/uL (130-400); RED BLOOD CELL COUNT(AUTO) 4.61 MIL/uL (4.50-6.20); RED CELL DISTRIBUTION WIDTH 14.1 % (11.0-15.5); WHITE BLOOD COUNT (AUTO) 7.0 K/uL (4.8-10.8)
[2025-05-04 04:34] LABS: ASPARTATE AMINOTRANSFERASE 34.0 U/L (10-37); CREATININE 1.5 mg/dL (0.5-1.3); GLOMERULAR FILTR. RATE CALC 50.0 mL/min (>90); GLUCOSE,RANDOM 136.0 mg/dL (70-105); PHOSPHORUS 3.0 mg/dL (2.5-4.9); SODIUM SERUM 141.0 mmol/L (136-145); TOTAL PROTEIN, SERUM 6.0 g/dL (6.0-8.3); UREA NITROGEN, BLOOD 31.0 mg/dL (7-18)
[2025-05-04] MEDS: MAGNESIUM 2GM PREMIX 50ML 50 ML IV PRN (05:56)
[2025-05-04] MEDS: amLODIPine 5 MG TAB PO SCH (08:22)
--- NOTE | 2025-05-04 10:21 | PN ---
[facility] PROGRESS NOTE Date of Service: May 04, 2025 Time of Service: 10:18 SUBJECTIVE: Patient remains admitted to the medical floor, BP 136/65, afebrile, saturating normal on room air. Hemoglobin 13.9, hematocrit 42.8, WBC 7.0, platelet count of 144. Sodium 141, potassium 4.6, BUN 31, creatinine 1.5, magnesium 1.0, stool for C difficile negative toxigenic C diff, negative antigen, negative C difficile a/B toxin. CT abdomen and pelvis no acute intra-abdominal or pelvic pathology, bilateral atrophic [place] kidneys without loculated surfaces, consistent with chronic kidney disease, right iliac fossa transplant kidney, measuring 10 x 4.9 cm. At the time of my visit the patient is comfortably in bed, he is watching TV, alert oriented x3, denies abdominal discomfort, however still admits to loose stools. Case discussed with the RN, no acute events overnight, patient is scheduled IV antibiotics at the time of my visit. Discussed with the patient. We will add Culturelle one capsule p.o. b.i.d.. REVIEW OF SYSTEMS CONSTITUTIONAL: Denies fevers, chills, or night sweats. No unintentional weight loss reported. NEUROLOGICAL: Denies headache, amaurosis fugax, motor weakness, sensory deficit, vertigo/spinning sensation, gait abnormalities, or tremors. ENT: No hearing loss, otalgia, otorrhea, rhinitis, rhinorrhea, hoarseness, or sore throat. CARDIOVASCULAR: Denies any exertional angina, dyspnea on exertion, orthopnea, paroxysmal nocturnal dyspnea, palpitations, life-threatening arrhythmias, claudication. PULMONARY: Denies any shortness of breath, cough, phlegm/sputum, hemoptysis, pleuritic chest pain. SLEEP: Denies morning headaches, daytime somnolence or napping. Denies difficulty falling asleep, staying asleep, waking from sleep. Denies knowledge of snoring. GASTROINTESTINAL: Positive for diarrhea, nausea, abdominal pain. Denied any vomiting, melena, hematochezia, hematemesis. GENITOURINARY: Denies frequency, urgency, nocturia, hematuria or incontinence (Storage/Irritative symptoms.) Low urinary stream, straining to void, urinary intermittency or hesitancy, splitting of the voiding stream, terminal dribbling. ENDOCRINOLOGIC: Denies polyuria, polydipsia, polyphagia or heat/cold intolerances. HEMATOLOGIC: Denies thrombophilia/previous clots, or coagulopathy/bleeding d isorders. ONCOLOGIC: Denies personal history of malignancy. DERMATOLOGIC: Denies rashes or pruritus. PSYCHIATRIC: Denies any suicidal or homicidal ideation. Denies hallucinations. PHYSICAL EXAM GENERAL APPEARANCE: The patient is awake, alert, and oriented, in no acute cardiopulmonary distress. NEUROLOGICAL: Cranial nerves II-XII grossly intact. Motor is 5/5 in bilateral upper and lower extremities proximal to distal. No sensory deficits. HEENT: Face is symmetric. Pupils are equal and reactive. Extraocular movements are intact. NECK: Supple. No JVD. No thyromegaly. No submental, submandibular, pre- /postauricular, occipital or supraclavicular lymphadenopathy. CHEST: Normal chest expansion. No Telemetry. LUNGS: Absence of any rales, rhonchi or any wheezing. CARDIOVASCULAR: Regular. S1 and S2 normal. No appreciable rubs, murmurs or gallops. ABDOMEN: Soft, nontender, and nondistended. There is no rebound, voluntary guarding, or rigidity. : Deferred. No J[place]. EXTREMITIES: Non-edematous and not cyanotic. No clubbing. Good capillary refill. SKIN: No skin breakdown. Vital Signs (last 8hr) Date Time Temp Pulse Resp B/P (MAP) Pulse Ox O2 Delivery O2 Flow Rate FiO2 05/04/25 08:23 136/65 05/04/25 08:15 Room Air* 0 21 05/04/25 08:00 96.8 81 17 136/65 99 Room Air 05/04/25 03:47 98.2 84 18 110/61 96 Room Air LABS: Laboratory: Test 05/04/25 05:07 05/04/25 03:50 05/03/25 14:45 05/03/25 09:55 Range/Units Whole Blood Glucose 152 H 70-110 MG/DL White Blood Count 7.0 # 4.8-10.8 K/uL Red Blood Count 4.61 4.50-6.20 MIL/uL Hemoglobin 13.9 L 14.0-18.0 g/dL Hematocrit 42.8 42-54 % Mean Corpuscular Volume 92.8 79-99 fL Mean Corpuscular Hemoglobin 30.2 27.0-33.0 pg Mean Corpuscular Hemoglobin Concent 32.5 32.0-36.0 g/dL Red Cell Distribution Width 14.1 11.0-15.5 % Platelet Count 144 130-400 K/uL Mean Platelet Volume 10.1 7.5-10.5 fL Immature Granulocyte % (Auto) 0.6 0-1 % Neutrophils (%) (Auto) 68.5 40.0-77.0 % Lymphocytes (%) (Auto) 14.8 L 21.0-51.0 % Monocytes (%) (Auto) 13.7 H 3.0-13.0 % Eosinophils (%) (Auto) 2.1 0.0-8.0 % Basophils (%) (Auto) 0.3 0.0-5.0 % Neutrophils # (Auto) 4.8 1.8-7.7 K/uL Lymphocytes # (Auto) 1.0 1.0-4.8 K/uL Monocytes # (Auto) 1.0 0.1-1.0 K/uL Eosinophils # (Auto) 0.15 0.00-0.70 K/uL Basophils # (Auto) 0.02 0.00-0.20 K/uL Absolute Immature Granulocyte (auto 0.04 0-1 K/uL Nucleated Red Blood Cells 0.0 0.0-0.19 % Sodium Level 141 136-145 mmol/L Potassium Level 4.6 3.5-5.1 mmol/L Chloride Level 111 101-111 mmol/L Carbon Dioxide Level 21 21-32 mmol/L Blood Urea Nitrogen 31 H 7-18 mg/dL Creatinine 1.5 H 0.5-1.3 mg/dL Glomerular Filtration Rate Calc 50 >90 mL/min Random Glucose 136 H 70-105 mg/dL Total Calcium 9.0 8.5-10.1 mg/dL Phosphorus Level 3.0 2.5-4.9 mg/dL Magnesium Level 1.40 L 1.80-2.40 mg/dL Total Bilirubin 0.7 0.2-1.0 mg/dL Aspartate Amino Transf (AST/SGOT) 34 10-37 U/L Alanine Aminotransferase (ALT/SGPT) 32 # 12-78 U/L Alkaline Phosphatase 71 50-136 U/L Total Protein 6.0 6.0-8.3 g/dL Albumin 3.2 L 3.5-5.0 g/dL C. difficile Antigen and Toxins A,B See comments NEG Urine Color YELLOW YELLOW Urine Appearance CLEAR CLEAR Urine pH 5.5 5.0-8.0 Urine Specific [place] 1.033 H 1.001-1.031 Urine Protein 100 H NEGATIVE mg/dL Urine Glucose (UA) NEGATIVE NEGATIVE mg/dL Urine Ketones NEGATIVE NEGATIVE mg/dL Urine Occult Blood SMALL H NEGATIVE Urine Nitrate NEGATIVE NEGATIVE Urine Bilirubin NEGATIVE NEGATIVE mg/dL Urine Urobilinogen 0.2 0.2-1.0 mg/dL Urine Leukocyte Esterase NEGATIVE NEGATIVE Jose Eduardo/uL Urine RBC 0-1 0-1 /HPF Urine WBC 2-5 H 0-1 /HPF Urine Squamous Epithelial Cells RARE 0-2 /HPF Urine Bacteria None None Seen /HPF Urine Osmolality 874 50-1200 mOsm/kg Urine Random Creatinine 337.94 H 30-135 mg/dL Urine Random Sodium 29 L 40-220 mmol/l Urine Random Potassium 96 25-125 mmol/L Urine Random Chloride 84 L 110-250 mmol/L Test 05/03/25 09:24 Range/Units Hemoglobin A1c 7.0 H 4.0-6.0 % Estimated Average Glucose (eAG) 154 H 70-126 mg/dL Total Creatine Kinase 195 21-232 U/L C-Reactive Protein, Quantitative 7.40 H 0.5-3.0 mg/L Procalcitonin 0.36 0.05-0.5 ng/mL Current Medications Medications (Trade) Dose Ordered Sig/Jamarcus Route PRN Reason Start Time Stop Time Status Last Admin Dose Admin Acetaminophen (TYLenol 500MG TAB) 500 mg Q6H PRN PO MILD PAIN (1-3) 05/03/25 11:30 06/02/25 11:29 05/03/25 23:20 500 MG Amlodipine Besylate (NorvASC 5MG TAB) 5 mg DAILY PO 05/04/25 09:00 06/03/25 08:59 05/04/25 08:22 5 MG Atorvastatin Calcium (LIPItor 20MG) 20 mg HS PO 05/03/25 21:00 06/02/25 20:59 05/03/25 19:46 20 MG Carvedilol (Coreg 25MG) 25 mg BID PO 05/03/25 21:00 06/02/25 20:59 05/04/25 08:23 25 MG Ceftriaxone Sodium (ROCEphine 1G INJ) 1 gm Q24H IVPB 05/03/25 11:30 05/13/25 11:29 05/03/25 12:45 1 GM Dextrose (D50w) 50 ml AD PRN IV HYPOGLYCEMIA PROTOCOL 05/03/25 12:00 06/02/25 11:59 Famotidine (Pepcid 20mg Vial) 20 mg Q24H IV 05/03/25 21:00 05/03/25 14:58 DC Glucagon (Glucagon 1mg Kit) 1 mg AD PRN IM HYPOGLYCEMIA PROTOCOL 05/03/25 12:00 06/02/25 11:59 Hydralazine HCl (APRESOLine 20MG INJ) 10 mg Q6H PRN IV ADMINISTER FOR SBP > 180 05/03/25 11:30 06/02/25 11:29 05/03/25 20:21 10 MG Insulin Human Regular (humuLIN R 100 UNIT/ML 3ML) INSULIN SLIDING SCAL... ACHS SQ 05/03/25 16:30 06/02/25 16:29 Ketorolac Tromethamine (ketOROlac troMETHamine) 1 ML QID OP 05/03/25 21:00 06/02/25 20:59 05/04/25 08:24 1 ML Ketorolac Tromethamine (ketOROlac troMETHamine) 1 ml QID OP 05/03/25 21:00 05/03/25 20:29 DC Magnesium Sulfate 50 ml @ 0 mls/hr PROTOCOL PRN IV h 05/04/25 05:00 06/03/25 04:59 05/04/25 05:56 15 MLS/HR Morphine Sulfate (morPHINE 2MG SYG) 2 mg Q4H PRN IVP SEVERE PAIN (7-10) 05/03/25 22:00 05/10/25 21:59 05/03/25 21:49 2 MG Ondansetron HCl (zoFRAN 4MG INJ) 4 mg Q6H PRN IVP NAUSEA/VOMITING 05/03/25 11:30 06/02/25 11:29 Pantoprazole Sodium (PROTonix 40MG INJ) 40 mg DAILY IVP 05/04/25 09:00 06/03/25 08:59 05/04/25 08:22 40 MG Prednisone (deltaSONE/ oraSONE 5MG) 5 mg DAILY PO 05/04/25 09:00 06/03/25 08:59 05/04/25 08:22 5 MG Sodium Chloride 1,000 ml @ 100 mls/hr Q10H IV 05/03/25 11:30 06/02/25 11:29 05/04/25 03:53 100 MLS/HR Tacrolimus (ProgRAF 1MG) 1 mg BID PO 05/03/25 21:00 06/02/25 20:59 05/04/25 08:22 1 MG Tamsulosin HCl (FloMAX) 0.4 mg HS PO 05/03/25 21:00 06/02/25 20:59 05/03/25 19:46 0.4 MG DIAGNOSTICS / RADIOLOGY: [ ] ASSESSMENT: Suspected gastroenteritis Acute kidney injury likely prerenal History of renal transplant Immunocompromised status History of dialysis Dehydration Hypertension Diabetes mellitus type 2 PLAN: - patient admitted to [facility] with tele -in reference to gastroenteritis. Stool for C difficile negative. Continue on Rocephin. CT of the abdomen and pelvis no acute findings. Continue The patient on NS for gentle hydration -obtain nephrology consultation. We will defer to Nephrology regarding continuing with anti rejection medication -we will request ID consultation -obtain home medications which will be reconciled once available -check procalcitonin, CRP, A1c -further orders per hospitalization course. Plan of action Discussed, all questions answered, agreed and understood the information provided BENNY NEWSOME MD May 04, 2025 10:21
[2025-05-04] MEDS: LACTOBACILLUS RHAMNOSUS GG 1 EACH CAP.SPRINK PO SCH (12:43)
--- NOTE | 2025-05-04 15:09 | PN ---
NEPHROLOGY PROGRESS NOTE Date/Time Patient Seen: May 04, 2025 SUBJECTIVE: This is a 69-year-old male with past medical history of hypertension, history of renal transplant in 2020 in [place] previously on dialysis, diabetes mellitus type 2 He presented to the hospital secondary to diarrhea. He takes tacrolimus, prednisone, mycophenolate at home. Pending home medication list. Imaging studies were noted He was noted with elevated BUN/creatinine We are consulted for renal failure Renal function is improving Electrolytes are stable UA was noted He has been resumed on immunosuppressive medication He was seen in the medical floor, in no acute distress Continues to complain of diarrhea No family at the bedside Prognosis remains guarded REVIEW OF SYSTEMS: GENERAL: Positive for diarrhea and generalized weakness NEUROLOGIC: Negative for any blurry vision, blind spots, double vision, facial asymmetry, dysphagia, dysarthria, hemiparesis, hemisensory deficits, vertigo, ataxia. HEENT: Negative for any head trauma, neck trauma, neck stiffness, photophobia, phonophobia, sinusitis, rhinitis. CARDIAC: Negative for any chest pain, dyspnea on exertion, paroxysmal nocturnal dyspnea, peripheral edema. PULMONARY: Negative for any shortness of breath, wheezing, COPD, or TB exposure. GASTROINTESTINAL: Negative for any abdominal pain, nausea, vomiting, bright red blood per rectum, melena. GENITOURINARY: Negative for any dysuria, hematuria, incontinence. INTEGUMENTARY: Negative for any rashes, cuts, insect bites. RHEUMATOLOGIC: Negative for any joint pains, photosensitive rashes, history of vasculitis or kidney problems. HEMATOLOGIC: Negative for any abnormal bruising, frequent infections or bleeding. PHYSICAL EXAM: GENERAL: Alert and oriented x 3. No acute distress. Well-nourished. EYES: EOMI. Anicteric. HENT: Moist mucous membranes. No scleral icterus. No cervical lymphadenopathy. LUNGS: Clear to auscultation bilaterally. No accessory muscle use. CARDIOVASCULAR: Regular rate and rhythm. No murmur. No JVD. ABDOMEN: Soft, non-tender and non-distended. No palpable masses. EXTREMITIES: No edema. Non-tender. SKIN: No rashes or lesions. Warm. NEUROLOGIC: No focal neurological deficits. CN II-XII grossly intact, but not individually tested. PSYCHIATRIC: Cooperative. Appropriate mood and affect. LABORATORY: [ ] Hematology Labs: Test 05/04/25 03:50 Range/Units White Blood Count 7.0 # 4.8-10.8 K/uL Red Blood Count 4.61 4.50-6.20 MIL/uL Hemoglobin 13.9 L 14.0-18.0 g/dL Hematocrit 42.8 42-54 % Mean Corpuscular Volume 92.8 79-99 fL Mean Corpuscular Hemoglobin 30.2 27.0-33.0 pg Mean Corpuscular Hemoglobin Concent 32.5 32.0-36.0 g/dL Red Cell Distribution Width 14.1 11.0-15.5 % Platelet Count 144 130-400 K/uL Mean Platelet Volume 10.1 7.5-10.5 fL Immature Granulocyte % (Auto) 0.6 0-1 % Neutrophils (%) (Auto) 68.5 40.0-77.0 % Lymphocytes (%) (Auto) 14.8 L 21.0-51.0 % Monocytes (%) (Auto) 13.7 H 3.0-13.0 % Eosinophils (%) (Auto) 2.1 0.0-8.0 % Basophils (%) (Auto) 0.3 0.0-5.0 % Neutrophils # (Auto) 4.8 1.8-7.7 K/uL Lymphocytes # (Auto) 1.0 1.0-4.8 K/uL Monocytes # (Auto) 1.0 0.1-1.0 K/uL Eosinophils # (Auto) 0.15 0.00-0.70 K/uL Basophils # (Auto) 0.02 0.00-0.20 K/uL Absolute Immature Granulocyte (auto 0.04 0-1 K/uL Nucleated Red Blood Cells 0.0 0.0-0.19 % Chemistry Labs: Test 05/04/25 11:20 05/04/25 03:50 05/03/25 09:24 Range/Units Whole Blood Glucose 179 H 70-110 MG/DL Sodium Level 141 136-145 mmol/L Potassium Level 4.6 3.5-5.1 mmol/L Chloride Level 111 101-111 mmol/L Carbon Dioxide Level 21 21-32 mmol/L Blood Urea Nitrogen 31 H 7-18 mg/dL Creatinine 1.5 H 0.5-1.3 mg/dL Glomerular Filtration Rate Calc 50 >90 mL/min Random Glucose 136 H 70-105 mg/dL Total Calcium 9.0 8.5-10.1 mg/dL Phosphorus Level 3.0 2.5-4.9 mg/dL Magnesium Level 1.40 L 1.80-2.40 mg/dL Total Bilirubin 0.7 0.2-1.0 mg/dL Aspartate Amino Transf (AST/SGOT) 34 10-37 U/L Alanine Aminotransferase (ALT/SGPT) 32 # 12-78 U/L Alkaline Phosphatase 71 50-136 U/L Total Protein 6.0 6.0-8.3 g/dL Albumin 3.2 L 3.5-5.0 g/dL Hemoglobin A1c 7.0 H 4.0-6.0 % Estimated Average Glucose (eAG) 154 H 70-126 mg/dL Total Creatine Kinase 195 21-232 U/L C-Reactive Protein, Quantitative 7.40 H 0.5-3.0 mg/L Procalcitonin 0.36 0.05-0.5 ng/mL DIAGNOSTICS / RADIOLOGY: [place] [address] IMAGING REPORT Signed PATIENT: FABIOLA CANAS MR#: [id number] : 1955 SEX: M AGE: 69 LOCATION: [facility] ORDER [id number] STATUS: ADM IN REPORT#: [id number] SERVICE [id number] REASON: GASTROENTERITIS, History of RENAL TRANSPLANT ORDERING PHYSICIAN: TOO TOMAS MD PROCEDURE: ABD PEL WO - CT ABDOMEN/PELVIS W/O CONTRAST EXAM: CT Abdomen and Pelvis Without IV contrast CLINICAL HISTORY: GASTROENTERITIS, History of RENAL TRANSPLANT TECHNIQUE: Axial computed tomography images of the abdomen and pelvis without intravenous contrast. CONTRAST: No IV contrast. COMPARISON: None provided. FINDINGS: LUNG BASES: There is subtle subpleural interlobular septal thickening at the posterobasal segment of the bilateral lower lobe. No pleural effusions are seen. LIVER: Hepatic steatosis. GALLBLADDER AND BILE DUCTS: Gallbladder not visualised separately, suggestive of a history of surgery. No biliary ductal dilatation is evident. PANCREAS: Unremarkable. SPLEEN: Unremarkable. ADRENAL GLANDS: Unremarkable. KIDNEYS, URETERS, AND BLADDER: Bilateral kidneys noted in the bilateral lumbar region, appearing atrophied with lobulated surfaces, suggestive of chronic kidney disease. Approximately 20 x 16 mm-sized simple cyst at the lower pole of the right kidney. The transplanted kidney measures approximately 10 x 4.9 cm and is visualized at the right iliac fossa region. There is no hydronephrosis or hydroureter. No urinary calculi are seen. STOMACH AND BOWEL: Unremarkable appearance of the stomach and bowel. No evidence of bowel obstruction. No evidence suggesting enteritis or colitis. APPENDIX: No evidence of acute appendicitis on CT examination. PERITONEUM: No free fluid. No free air. LYMPH NODES: No lymphadenopathy is evident. REPRODUCTIVE: Unremarkable as visualized. VASCULATURE: No evidence of abdominal aortic aneurysm. BONES: Osseous degenerative changes in the form of marginal osteophytes and vacuum phenomenon. Endplate degenerative changes involving the opposing articular surface of the L3-L4 vertebral body with subchondral sclerosis and vacuum phenomenon., Loss of normal lumbar lordosis No aggressive appearing osseous lesion. No acute osseous pathology evident.IMPRESSION: 1. No acute intraabdominal or pelvic pathology. 2. Bilateral atrophic [place] kidneys with lobulated surfaces, consistent with chronic kidney disease. Right iliac fossa transplant kidney, measuring 10 x 4.9 cm. /[place] DICTATED BY: ROSALINE DIANE Jr., MD DATE: 05/03/251322 ELECTRONICALLY SIGNED BY: ROSALINE DIANE Jr., MD DATE: 05/03/25 132 ASSESSMENT: Suspected gastroenteritis Acute kidney injury History of renal transplant Immunocompromised status Dehydration Hypertension Diabetes mellitus type 2 PLAN: Labs, diagnostic, radiologic exams reviewed and interpreted by myself and s upervising physician. We have reviewed external records in detail Resume CellCept 500 mg p.o. b.i.d. Resume immunosuppressive medication Continue IV fluids Require close monitoring of renal function and electrolytes Order CBC, CMP, and electrolytes in am Renal diabetic diet BiPAP as necessary, for respiratory distress Monitor blood pressure adjust medication doses as needed Avoid hypotensive episodes May use Dilaudid 0.5 mg IV every 6 hours as needed for severe pain Monitor blood sugars Strict intake, output, and daily weight should be monitored Please renally adjust medications Avoid nephrotoxic and nonsteroidal drugs Avoid contrast if possible Will continue to monitor renal function, anemia, electrolytes Treatment plan discussed with patient Questions were answered We have discussed with the other team physicians in detail about the care plan We will continue to monitor the patient closely ATTESTATION BY PHYSICIAN I have seen and examined the patient. I reviewed the documentation, medical decision making, and treatment plan as noted by the mid-level provider above. I agree with the findings and plan of care. SCOTTY KELLER MD, [facility] May 04, 2025 15:09
[2025-05-04] MEDS: MYCOPHENOLATE MOFETIL 250 MG CAPSULE PO SCH (15:12)
--- NOTE | 2025-05-04 20:32 | PN ---
INFECTIOUS DISEASE FOLLOWUP NOTE DATE OF SERVICE: 05/04/2025 SUBJECTIVE: The patient is seen and examined at bedside today. The patient has no fever, no chills. She has some diarrhea, but appetite is good. Denies abdominal pain. No bleeding tendency. No rashes or itchiness. No depression or suicidal ideation. PHYSICAL EXAMINATION: VITAL SIGNS: Temperature today is 97.5. EYES: No icterus. Pupils are equal and reactive. HENT: No oral thrush seen. Moist oral mucosa. NECK: Supple. No JVD or thyromegaly. LUNGS: Good air entry. No rales. No rhonchi. CARDIOVASCULAR: S1 and S2 regular. No murmur heard. ABDOMEN: Full, soft, nontender. Bowel sound is present. CENTRAL NERVOUS SYSTEM: Awake, alert, oriented x 3. No focal deficits. SKIN: No rashes, no itchiness. LYMPHATIC: No peripheral lymphadenopathy. BACK: No deformity, no pressure ulcer. HEMATOLOGIC: No bleeding or petechial lesion seen. MUSCULOSKELETAL: No joint swelling, erythema or tenderness. ASSESSMENT: A 69-year-old male admitted with diarrhea. Current problems include: * Noninfectious diarrhea. * Acute renal failure. * History of renal transplant. * ____. * Dehydration. * Obesity. PLAN: * Continue nutritional support. * Continue GI prophylaxis. * ____. * Continue antiemetic. * Continue pain management. * Continue DVT prophylaxis. * The patient will be followed up closely. TID: [id number] RECEIPT: [id number]
[2025-05-04] MEDS: LOPERAMIDE 1 MG/7.5 ML UDCUP PO SCH (20:43)
--- NOTE | 2025-05-04 23:45 | NUR ---
nurse note patient alert and oriented times 3. plan of care discussed with him and he verbalizes understanding. patient has been having several bowel movements tonight loose stools. stool sent to lab. he has no pain. he is ambulatory to the restroom. he has slept about 4 hours tonight. call light within reach, bed alarm on, 2 side rails up. will continue to monitor patient.
[2025-05-05] VITALS (7 sets, daily range): BP systolic 124–156; BP diastolic 60–95; PULSE 68–76; RESP 19–22; TEMP 97.4–97.8; O2SAT 96
--- NOTE | 2025-05-05 00:46 | CONS ---
INFECTIOUS DISEASE CONSULTATION DATE OF SERVICE: 05/03/2025 REQUESTING PHYSICIAN: Duane Luis MD REASON FOR CONSULTATION: Gastroenterology. HISTORY OF PRESENT ILLNESS: A 69-year-old male with a history of end-stage renal disease, status post renal transplant, hypertension, and diabetes mellitus, presenting with diarrhea. Symptoms started 2 days prior to presentation. Stool is watery, non-bloody. The patient denies fever or chills. No vomiting. The patient has a renal transplant and is on an immunosuppressive agent. CT of the abdomen has been done and showed no active pathology. The patient started on ceftriaxone. PAST MEDICAL HISTORY: * Hypertension. * ESRD, status post renal transplant. * Diabetes mellitus. PAST SURGICAL HISTORY: * Renal transplant status. * AV fistula surgery. ALLERGIES: METFORMIN. CURRENT MEDICATIONS: Include, * Insulin. * Ceftriaxone. * Tacrolimus. * Zofran. * Tylenol. SOCIAL HISTORY: Denies alcohol, tobacco, or illicit drug use. FAMILY HISTORY: Positive for diabetes mellitus. REVIEW OF SYSTEMS: Greater than 10-systems were reviewed and negative except as documented above. PHYSICAL EXAMINATION: GENERAL: Elderly male, awake. VITAL SIGNS: Temperature 97.7, pulse 71, respirations 16, BP 141/75. EYES: No icterus. Pupils equal and reactive. HENT: No oral thrush seen. Moist oral mucosa. NECK: Supple. No JVD or thyromegaly. LUNGS: Good air entry. No rales, no rhonchi. CARDIOVASCULAR: S1, S2 regular. No murmur heard. ABDOMEN: Obese, soft, and nontender. Bowel sound is present. CENTRAL NERVOUS SYSTEM: Awake, alert, oriented x 3. No focal deficits. SKIN: No rashes, no itchiness. LYMPHATIC: No peripheral lymphadenopathy. BACK: No deformity, no pressure ulcer. HEMATOLOGIC: No bleeding or petechial lesion seen. LABORATORY DATA: Hemoglobin A1c 7.0. Sodium 140, potassium 4.8, BUN 31, creatinine 1.7. WBC 9.4, hemoglobin 15.9, platelets 163. RADIOLOGY: CT of the abdomen unremarkable. ASSESSMENT: A 69-year-old male presented with diarrhea of 2 days' duration. Current problems include, * Noninfectious gastroenteritis. * Dehydration. * History of renal transplant. * Obesity. * Hypertension. * Diabetes mellitus, A1c of 7.0. PLAN: * Continue antirejection for renal transplant. * Continue pain managementt. * Continue IV fluids. * Continue antidiabetic. * Monitor electrolyte. * Continue nutritional support. * The patient will be followed up closely. Thank you for allowing me to participate in the care of this patient. TID: [id number] RECEIPT: [id number] MTDD
[2025-05-05] MEDS: LOPERAMIDE 1 MG/7.5 ML UDCUP PO PRN (03:01)
[2025-05-05 04:22] LABS: NUCLEATED RED BLOOD CELLS 0.0 % (0.0-0.19); PLATELET COUNT (AUTO) 149.0 K/uL (130-400); RED BLOOD CELL COUNT(AUTO) 4.32 MIL/uL (4.50-6.20); RED CELL DISTRIBUTION WIDTH 14.0 % (11.0-15.5); WHITE BLOOD COUNT (AUTO) 7.4 K/uL (4.8-10.8)
[2025-05-05 04:43] LABS: ASPARTATE AMINOTRANSFERASE 27.0 U/L (10-37); CREATININE 1.2 mg/dL (0.5-1.3); GLOMERULAR FILTR. RATE CALC 66.0 mL/min (>90); GLUCOSE,RANDOM 171.0 mg/dL (70-105); PHOSPHORUS 2.4 mg/dL (2.5-4.9); SODIUM SERUM 141.0 mmol/L (136-145); TOTAL PROTEIN, SERUM 5.9 g/dL (6.0-8.3); UREA NITROGEN, BLOOD 26.0 mg/dL (7-18)
[2025-05-05] MEDS: MAGNESIUM 2GM PREMIX 50ML 50 ML IV SCH (04:48)
[2025-05-05] MEDS: ENOXAPARIN SODIUM 30 MG/0.3 ML SQ SCH (08:43)
--- NOTE | 2025-05-05 10:27 | PN ---
NEPHROLOGY PROGRESS NOTE Date/Time Patient Seen: May 05, 2025 SUBJECTIVE: This is a 69-year-old male with past medical history of hypertension, history of renal transplant in 2020 in [place] previously on dialysis, diabetes mellitus type 2 He presented to the hospital secondary to diarrhea. He takes tacrolimus, prednisone, mycophenolate at home. Imaging studies were noted He continues on gentle IV hydration He was noted with elevated BUN/creatinine We are consulted for renal failure Renal function is improving Electrolytes are stable UA was noted He has been resumed on immunosuppressive medication Pending stool PCR He was seen in the medical floor, in no acute distress Continues to complain of diarrhea No family at the bedside Prognosis remains guarded REVIEW OF SYSTEMS: GENERAL: Positive for diarrhea and generalized weakness NEUROLOGIC: Negative for any blurry vision, blind spots, double vision, facial asymmetry, dysphagia, dysarthria, hemiparesis, hemisensory deficits, vertigo, ataxia. HEENT: Negative for any head trauma, neck trauma, neck stiffness, photophobia, phonophobia, sinusitis, rhinitis. CARDIAC: Negative for any chest pain, dyspnea on exertion, paroxysmal nocturnal dyspnea, peripheral edema. PULMONARY: Negative for any shortness of breath, wheezing, COPD, or TB exposure. GASTROINTESTINAL: Negative for any abdominal pain, nausea, vomiting, bright red blood per rectum, melena. GENITOURINARY: Negative for any dysuria, hematuria, incontinence. INTEGUMENTARY: Negative for any rashes, cuts, insect bites. RHEUMATOLOGIC: Negative for any joint pains, photosensitive rashes, history of vasculitis or kidney problems. HEMATOLOGIC: Negative for any abnormal bruising, frequent infections or bleeding. Vital Signs (last 8hr) Date Time Temp Pulse Resp B/P (MAP) Pulse Ox O2 Delivery O2 Flow Rate FiO2 05/05/25 08:39 124/71 05/05/25 07:53 97.7 71 19 124/71 99 Room Air 21 05/05/25 03:23 97.9 76 19 146/60 98 Room Air PHYSICAL EXAM: GENERAL: Alert and oriented x 3. No acute distress. Well-nourished. EYES: EOMI. Anicteric. HENT: Moist mucous membranes. No scleral icterus. No cervical lymphadenopathy. LUNGS: Clear to auscultation bilaterally. No accessory muscle use. CARDIOVASCULAR: Regular rate and rhythm. No murmur. No JVD. ABDOMEN: Soft, non-tender and non-distended. No palpable masses. EXTREMITIES: No edema. Non-tender. SKIN: No rashes or lesions. Warm. NEUROLOGIC: No focal neurological deficits. CN II-XII grossly intact, but not individually tested. PSYCHIATRIC: Cooperative. Appropriate mood and affect. Current Medications Medications (Trade) Dose Ordered Sig/Jamarcus Route Start Time Stop Time Status Last Admin Dose Admin Amlodipine Besylate (NorvASC 5MG TAB) 5 mg DAILY PO 05/04/25 09:00 06/03/25 08:59 05/05/25 08:39 5 MG Atorvastatin Calcium (LIPItor 20MG) 20 mg HS PO 05/03/25 21:00 06/02/25 20:59 05/04/25 20:35 20 MG Carvedilol (Coreg 25MG) 25 mg BID PO 05/03/25 21:00 06/02/25 20:59 05/05/25 08:39 25 MG Ceftriaxone Sodium (ROCEphine 1G INJ) 1 gm Q24H IVPB 05/03/25 11:30 05/13/25 11:29 05/04/25 11:46 1 GM Enoxaparin Sodium (Lovenox) 30 mg DAILY SQ 05/05/25 09:00 06/04/25 08:59 Famotidine (Pepcid 20mg Vial) 20 mg Q24H IV 05/03/25 21:00 05/03/25 14:58 DC Insulin Human Regular (humuLIN R 100 UNIT/ML 3ML) INSULIN SLIDING SCAL... ACHS SQ 05/03/25 16:30 06/02/25 16:29 05/04/25 11:47 2 UNIT Ketorolac Tromethamine (ketOROlac troMETHamine) 1 ML QID OP 05/03/25 21:00 06/02/25 20:59 05/05/25 08:40 1 ML Ketorolac Tromethamine (ketOROlac troMETHamine) 1 ml QID OP 05/03/25 21:00 05/03/25 20:29 DC Lactobacillus Rhamnosus ([facility] [employer]) 1 each BID PO 05/04/25 12:30 06/03/25 12:29 05/05/25 08:39 1 EACH Loperamide HCl (Immodium Liquid) 10 mg ONCE PO 05/04/25 19:00 05/04/25 23:30 DC 05/04/25 20:43 10 MG Magnesium Sulfate 50 ml @ 0 mls/hr PROTOCOL IV 05/04/25 10:30 06/03/25 10:29 05/05/25 04:48 15 MLS/HR Mycophenolate Mofetil (Cellcept) 500 mg BID PO 05/04/25 14:00 06/03/25 13:59 05/05/25 08:39 500 MG Pantoprazole Sodium (PROTonix 40MG INJ) 40 mg DAILY IVP 05/04/25 09:00 06/03/25 08:59 05/05/25 08:39 40 MG Prednisone (deltaSONE/ oraSONE 5MG) 5 mg DAILY PO 05/04/25 09:00 06/03/25 08:59 05/05/25 08:41 5 MG Sodium Chloride 1,000 ml @ 100 mls/hr Q10H IV 05/03/25 11:30 06/02/25 11:29 05/05/25 04:48 100 MLS/HR Tacrolimus (ProgRAF 1MG) 1 mg BID PO 05/03/25 21:00 06/02/25 20:59 05/05/25 08:39 1 MG Tamsulosin HCl (FloMAX) 0.4 mg HS PO 05/03/25 21:00 06/02/25 20:59 05/04/25 20:35 0.4 MG LABORATORY: [ ] Hematology Labs: Test 05/05/25 04:08 05/04/25 03:50 Range/Units White Blood Count 7.4 4.8-10.8 K/uL Red Blood Count 4.32 L 4.50-6.20 MIL/uL Hemoglobin 12.8 L 14.0-18.0 g/dL Hematocrit 39.2 L 42-54 % Mean Corpuscular Volume 90.7 79-99 fL Mean Corpuscular Hemoglobin 29.6 27.0-33.0 pg Mean Corpuscular Hemoglobin Concent 32.7 32.0-36.0 g/dL Red Cell Distribution Width 14.0 11.0-15.5 % Platelet Count 149 130-400 K/uL Mean Platelet Volume 9.7 7.5-10.5 fL Nucleated Red Blood Cells 0.0 0.0-0.19 % Immature Granulocyte % (Auto) 0.6 0-1 % Neutrophils (%) (Auto) 68.5 40.0-77.0 % Lymphocytes (%) (Auto) 14.8 L 21.0-51.0 % Monocytes (%) (Auto) 13.7 H 3.0-13.0 % Eosinophils (%) (Auto) 2.1 0.0-8.0 % Basophils (%) (Auto) 0.3 0.0-5.0 % Neutrophils # (Auto) 4.8 1.8-7.7 K/uL Lymphocytes # (Auto) 1.0 1.0-4.8 K/uL Monocytes # (Auto) 1.0 0.1-1.0 K/uL Eosinophils # (Auto) 0.15 0.00-0.70 K/uL Basophils # (Auto) 0.02 0.00-0.20 K/uL Absolute Immature Granulocyte (auto 0.04 0-1 K/uL Chemistry Labs: Test 05/05/25 04:08 05/04/25 19:15 Range/Units Sodium Level 141 136-145 mmol/L Potassium Level 4.5 3.5-5.1 mmol/L Chloride Level 112 H 101-111 mmol/L Carbon Dioxide Level 22 21-32 mmol/L Blood Urea Nitrogen 26 H 7-18 mg/dL Creatinine 1.2 0.5-1.3 mg/dL Glomerular Filtration Rate Calc 66 >90 mL/min Random Glucose 171 H 70-105 mg/dL Total Calcium 8.6 8.5-10.1 mg/dL Phosphorus Level 2.4 L 2.5-4.9 mg/dL Magnesium Level 1.70 L 1.80-2.40 mg/dL Total Bilirubin 0.4 0.2-1.0 mg/dL Aspartate Amino Transf (AST/SGOT) 27 10-37 U/L Alanine Aminotransferase (ALT/SGPT) 28 12-78 U/L Alkaline Phosphatase 70 50-136 U/L Total Protein 5.9 L 6.0-8.3 g/dL Albumin 3.1 L 3.5-5.0 g/dL Whole Blood Glucose 156 H 70-110 MG/DL DIAGNOSTICS / RADIOLOGY: [place] [address] [place] [id number] IMAGING REPORT Signed PATIENT: FABIOLA CANAS MR#: [id number] : 1955 SEX: M AGE: 69 LOCATION: [facility] ORDER 1500 STATUS: ADM IN REPORT#: [id number] SERVICE [id number] REASON: RENAL TRANSPLANT ORDERING PHYSICIAN: SCOTTY KELLER MD PROCEDURE: RENAL - US RENAL SONOGRAM EXAM: Ultrasound renal transplant with doppler imaging INDICATION: Renal transplant TECHNIQUE: Ding scale and color doppler images with spectral doppler of the kidney. REFERENCE EXAMINATION: None FINDINGS: Atrophy of the [place] kidneys with right renal cyst. Kidney demonstrates no hydronephrosis or perinephric fluid collection. Bladder appears unremarkable. The main renal artery is patent with peak systolic velocities as follows: renal hilum - 157 cm/s; renal mid - 114 cm/s; renal anas - 79 cm/s; intrarenal resistive indices range from 0.72 to 0.75 Peak systolic velocity in the external iliac artery is 111 cm/s. Main renal vein and external iliac vein are patent. IMPRESSION: Transplanted renal vasculature is patent /[place] DICTATED BY: PAMELA OCONNELL MD DATE: 05/03/251805 ELECTRONICALLY SIGNED BY: PAMELA OCONNELL MD DATE: 05/03/251805 PATIENT: FABIOLA CANAS MR#: [id number] : 1955 SEX: M AGE: 69 LOCATION: [facility] ORDER 1106 STATUS: ADM IN REPORT#: [id number] SERVICE 1101 REASON: GASTROENTERITIS, History of RENAL TRANSPLANT ORDERING PHYSICIAN: TOO TOMAS MD PROCEDURE: ABD PEL WO - CT ABDOMEN/PELVIS W/O CONTRAST EXAM: CT Abdomen and Pelvis Without IV contrast CLINICAL HISTORY: GASTROENTERITIS, History of RENAL TRANSPLANT TECHNIQUE: Axial computed tomography images of the abdomen and pelvis without intravenous contrast. CONTRAST: No IV contrast. COMPARISON: None provided. FINDINGS: LUNG BASES: There is subtle subpleural interlobular septal thickening at the posterobasal segment of the bilateral lower lobe. No pleural effusions are seen. LIVER: Hepatic steatosis. GALLBLADDER AND BILE DUCTS: Gallbladder not visualised separately, suggestive of a history of surgery. No biliary ductal dilatation is evident. PANCREAS: Unremarkable. SPLEEN: Unremarkable. ADRENAL GLANDS: Unremarkable. KIDNEYS, URETERS, AND BLADDER: Bilateral kidneys noted in the bilateral lumbar region, appearing atrophied with lobulated surfaces, suggestive of chronic kidney disease. Approximately 20 x 16 mm-sized simple cyst at the lower pole of the right kidney. The transplanted kidney measures approximately 10 x 4.9 cm and is visualized at the right iliac fossa region. There is no hydronephrosis or hydroureter. No urinary calculi are seen. STOMACH AND BOWEL: Unremarkable appearance of the stomach and bowel. No evidence of bowel obstruction. No evidence suggesting enteritis or colitis. APPENDIX: No evidence of acute appendicitis on CT examination. PERITONEUM: No free fluid. No free air. LYMPH NODES: No lymphadenopathy is evident. REPRODUCTIVE: Unremarkable as visualized. VASCULATURE: No evidence of abdominal aortic aneurysm. BONES: Osseous degenerative changes in the form of marginal osteophytes and vacuum phenomenon. Endplate degenerative changes involving the opposing articular surface of the L3-L4 vertebral body with subchondral sclerosis and vacuum phenomenon., Loss of normal lumbar lordosis No aggressive appearing osseous lesion. No acute osseous pathology evident.IMPRESSION: 1. No acute intraabdominal or pelvic pathology. 2. Bilateral atrophic [place] kidneys with lobulated surfaces, consistent with chronic kidney disease. Right iliac fossa transplant kidney, measuring 10 x 4.9 cm. /[place] DICTATED BY: ROSALINE DIANE Jr., MD DATE: 05/03/25 1323 ELECTRONICALLY SIGNED BY: ROSALINE DIANE Jr., MD DATE: 05/03/25 1323 ASSESSMENT: Suspected gastroenteritis Acute kidney injury History of renal transplant Immunocompromised status Dehydration Hypertension Diabetes mellitus type 2 PLAN: Labs, diagnostic, radiologic exams reviewed and interpreted by myself and s upervising physician. We have reviewed external records in detail Discontinue IV fluids Transplant patients prone to Campylobacter, recommend Levaquin or azithromycin Continue with the immunosuppressive medication. Require close monitoring of renal function and electrolytes Order CBC, CMP, and electrolytes in am Renal diabetic diet BiPAP as necessary, for respiratory distress Monitor blood pressure adjust medication doses as needed Avoid hypotensive episodes May use Dilaudid 0.5 mg IV every 6 hours as needed for severe pain Monitor blood sugars Strict intake, output, and daily weight should be monitored Please renally adjust medications Avoid nephrotoxic and nonsteroidal drugs Avoid contrast if possible Will continue to monitor renal function, anemia, electrolytes Treatment plan discussed with patient Questions were answered We have discussed with the other team physicians in detail about the care plan We will continue to monitor the patient closely ATTESTATION BY PHYSICIAN I have seen and examined the patient. I reviewed the documentation, medical decision making, and treatment plan as noted by the mid-level provider above. I agree with the findings and plan of care. SCOTTY KELLER MD, [facility] May 05, 2025 10:27
--- NOTE | 2025-05-05 11:13 | PN ---
[facility] PROGRESS NOTE Date of Service: May 05, 2025 Time of Service: 11:12 SUBJECTIVE: Patient remains admitted to the medical floor, BP 136/65, afebrile, saturating normal on room air. Hemoglobin 13.9, hematocrit 42.8, WBC 7.0, platelet count of 144. Sodium 141, potassium 4.6, BUN 31, creatinine 1.5, magnesium 1.0, stool for C difficile negative toxigenic C diff, negative antigen, negative C difficile a/B toxin. CT abdomen and pelvis no acute intra-abdominal or pelvic pathology, bilateral atrophic [place] kidneys without loculated surfaces, consistent with chronic kidney disease, right iliac fossa transplant kidney, measuring 10 x 4.9 cm. At the time of my visit the patient is comfortably in bed, he is watching TV, alert oriented x3, denies abdominal discomfort, however still admits to loose stools. Case discussed with the RN, no acute events overnight, patient is scheduled IV antibiotics at the time of my visit. Discussed with the patient. We will add Culturelle one capsule p.o. b.i.d.. 05/05 patient remains admitted to the medical floor, hemodynamically stable, afebrile, saturating normal on room air. Hemoglobin 12.8, hematocrit 39.2. WBC 7.4, platelet count 149. Stool for C difficile negative. Blood culture so far negative. Renal ultrasound transplanted renal vasculature is patent. We will switch antibiotics from Rocephin to azithromycin p.o.. Patient is still with loose stools. Continue Culturelle. REVIEW OF SYSTEMS CONSTITUTIONAL: Denies fevers, chills, or night sweats. No unintentional weight loss reported. NEUROLOGICAL: Denies headache, amaurosis fugax, motor weakness, sensory deficit, vertigo/spinning sensation, gait abnormalities, or tremors. ENT: No hearing loss, otalgia, otorrhea, rhinitis, rhinorrhea, hoarseness, or sore throat. CARDIOVASCULAR: Denies any exertional angina, dyspnea on exertion, orthopnea, paroxysmal nocturnal dyspnea, palpitations, life-threatening arrhythmias, claudication. PULMONARY: Denies any shortness of breath, cough, phlegm/sputum, hemoptysis, p leuritic chest pain. SLEEP: Denies morning headaches, daytime somnolence or napping. Denies difficulty falling asleep, staying asleep, waking from sleep. Denies knowledge of snoring. GASTROINTESTINAL: Positive for diarrhea, nausea, abdominal pain. Denied any vomiting, melena, hematochezia, hematemesis. GENITOURINARY: Denies frequency, urgency, nocturia, hematuria or incontinence (Storage/Irritative symptoms.) Low urinary stream, straining to void, urinary intermittency or hesitancy, splitting of the voiding stream, terminal dribbling. ENDOCRINOLOGIC: Denies polyuria, polydipsia, polyphagia or heat/cold intolerances. HEMATOLOGIC: Denies thrombophilia/previous clots, or coagulopathy/bleeding disorders. ONCOLOGIC: Denies personal history of malignancy. DERMATOLOGIC: Denies rashes or pruritus. PSYCHIATRIC: Denies any suicidal or homicidal ideation. Denies hallucinations. PHYSICAL EXAM GENERAL APPEARANCE: The patient is awake, alert, and oriented, in no acute cardiopulmonary distress. NEUROLOGICAL: Cranial nerves II-XII grossly intact. Motor is 5/5 in bilateral upper and lower extremities proximal to distal. No sensory deficits. HEENT: Face is symmetric. Pupils are equal and reactive. Extraocular movements are intact. NECK: Supple. No JVD. No thyromegaly. No submental, submandibular, pre- /postauricular, occipital or supraclavicular lymphadenopathy. CHEST: Normal chest expansion. No Telemetry. LUNGS: Absence of any rales, rhonchi or any wheezing. CARDIOVASCULAR: Regular. S1 and S2 normal. No appreciable rubs, murmurs or gallops. ABDOMEN: Soft, nontender, and nondistended. There is no rebound, voluntary guarding, or rigidity. : Deferred. No [place]. EXTREMITIES: Non-edematous and not cyanotic. No clubbing. Good capillary refill. SKIN: No skin breakdown. Vital Signs (last 8hr) Date Time Temp Pulse Resp B/P (MAP) Pulse Ox O2 Delivery O2 Flow Rate FiO2 05/05/25 08:39 124/71 05/05/25 07:53 97.7 71 19 124/71 99 Room Air 21 05/05/25 03:23 97.9 76 19 146/60 98 Room Air LABS: Laboratory: Test 05/05/25 04:08 05/04/25 19:42 05/04/25 19:15 05/04/25 03:50 Range/Units White Blood Count 7.4 4.8-10.8 K/uL Red Blood Count 4.32 L 4.50-6.20 MIL/uL Hemoglobin 12.8 L 14.0-18.0 g/dL Hematocrit 39.2 L 42-54 % Mean Corpuscular Volume 90.7 79-99 fL Mean Corpuscular Hemoglobin 29.6 27.0-33.0 pg Mean Corpuscular Hemoglobin Concent 32.7 32.0-36.0 g/dL Red Cell Distribution Width 14.0 11.0-15.5 % Platelet Count 149 130-400 K/uL Mean Platelet Volume 9.7 7.5-10.5 fL Nucleated Red Blood Cells 0.0 0.0-0.19 % Sodium Level 141 136-145 mmol/L Potassium Level 4.5 3.5-5.1 mmol/L Chloride Level 112 H 101-111 mmol/L Carbon Dioxide Level 22 21-32 mmol/L Blood Urea Nitrogen 26 H 7-18 mg/dL Creatinine 1.2 0.5-1.3 mg/dL Glomerular Filtration Rate Calc 66 >90 mL/min Random Glucose 171 H 70-105 mg/dL Total Calcium 8.6 8.5-10.1 mg/dL Phosphorus Level 2.4 L 2.5-4.9 mg/dL Magnesium Level 1.70 L 1.80-2.40 mg/dL Total Bilirubin 0.4 0.2-1.0 mg/dL Aspartate Amino Transf (AST/SGOT) 27 10-37 U/L Alanine Aminotransferase (ALT/SGPT) 28 12-78 U/L Alkaline Phosphatase 70 50-136 U/L Total Protein 5.9 L 6.0-8.3 g/dL Albumin 3.1 L 3.5-5.0 g/dL Stool Lactoferrin (TAYLOR) POSITIVE H NEGATIVE Whole Blood Glucose 156 H 70-110 MG/DL Immature Granulocyte % (Auto) 0.6 0-1 % Neutrophils (%) (Auto) 68.5 40.0-77.0 % Lymphocytes (%) (Auto) 14.8 L 21.0-51.0 % Monocytes (%) (Auto) 13.7 H 3.0-13.0 % Eosinophils (%) (Auto) 2.1 0.0-8.0 % Basophils (%) (Auto) 0.3 0.0-5.0 % Neutrophils # (Auto) 4.8 1.8-7.7 K/uL Lymphocytes # (Auto) 1.0 1.0-4.8 K/uL Monocytes # (Auto) 1.0 0.1-1.0 K/uL Eosinophils # (Auto) 0.15 0.00-0.70 K/uL Basophils # (Auto) 0.02 0.00-0.20 K/uL Absolute Immature Granulocyte (auto 0.04 0-1 K/uL Test 05/03/25 14:45 Range/Units C. difficile Antigen and Toxins A,B See comments NEG Current Medications Medications (Trade) Dose Ordered Sig/Jamarcus Route PRN Reason Start Time Stop Time Status Last Admin Dose Admin Acetaminophen (TYLenol 500MG TAB) 500 mg Q6H PRN PO MILD PAIN (1-3) 05/03/25 11:30 06/02/25 11:29 05/05/25 01:16 500 MG Amlodipine Besylate (NorvASC 5MG TAB) 5 mg DAILY PO 05/04/25 09:00 06/03/25 08:59 05/05/25 08:39 5 MG Atorvastatin Calcium (LIPItor 20MG) 20 mg HS PO 05/03/25 21:00 06/02/25 20:59 05/04/25 20:35 20 MG Carvedilol (Coreg 25MG) 25 mg BID PO 05/03/25 21:00 06/02/25 20:59 05/05/25 08:39 25 MG Ceftriaxone Sodium (ROCEphine 1G INJ) 1 gm Q24H IVPB 05/03/25 11:30 05/13/25 11:29 05/04/25 11:46 1 GM Dextrose (D50w) 50 ml AD PRN IV HYPOGLYCEMIA PROTOCOL 05/03/25 12:00 06/02/25 11:59 Enoxaparin Sodium (Lovenox) 30 mg DAILY SQ 05/05/25 09:00 06/04/25 08:59 Famotidine (Pepcid 20mg Vial) 20 mg Q24H IV 05/03/25 21:00 05/03/25 14:58 DC Glucagon (Glucagon 1mg Kit) 1 mg AD PRN IM HYPOGLYCEMIA PROTOCOL 05/03/25 12:00 06/02/25 11:59 Hydralazine HCl (APRESOLine 20MG INJ) 10 mg Q6H PRN IV ADMINISTER FOR SBP > 180 05/03/25 11:30 06/02/25 11:29 05/03/25 20:21 10 MG Insulin Human Regular (humuLIN R 100 UNIT/ML 3ML) INSULIN SLIDING SCAL... ACHS SQ 05/03/25 16:30 06/02/25 16:29 05/04/25 11:47 2 UNIT Ketorolac Tromethamine (ketOROlac troMETHamine) 1 ML QID OP 05/03/25 21:00 06/02/25 20:59 05/05/25 08:40 1 ML Ketorolac Tromethamine (ketOROlac troMETHamine) 1 ml QID OP 05/03/25 21:00 05/03/25 20:29 DC Lactobacillus Rhamnosus ([facility] [facility]) 1 each BID PO 05/04/25 12:30 06/03/25 12:29 05/05/25 08:39 1 EACH Loperamide HCl (Immodium Liquid) 5 mg Q6H PRN PO DIARRHEA 05/04/25 19:00 06/03/25 18:59 05/05/25 10:00 5 MG Loperamide HCl (Immodium Liquid) 10 mg ONCE PO 05/04/25 19:00 05/04/25 23:30 DC 05/04/25 20:43 10 MG Magnesium Sulfate 50 ml @ 0 mls/hr PROTOCOL IV 05/04/25 10:30 06/03/25 10:29 05/05/25 04:48 15 MLS/HR Magnesium Sulfate 50 ml @ 0 mls/hr PROTOCOL PRN IV h 05/04/25 05:00 05/04/25 10:21 DC 05/04/25 05:56 15 MLS/HR Morphine Sulfate (morPHINE 2MG SYG) 2 mg Q4H PRN IVP SEVERE PAIN (7-10) 05/03/25 22:00 05/10/25 21:59 05/03/25 21:49 2 MG Mycophenolate Mofetil (Cellcept) 500 mg BID PO 05/04/25 14:00 06/03/25 13:59 05/05/25 08:39 500 MG Ondansetron HCl (zoFRAN 4MG INJ) 4 mg Q6H PRN IVP NAUSEA/VOMITING 05/03/25 11:30 06/02/25 11:29 Pantoprazole Sodium (PROTonix 40MG INJ) 40 mg DAILY IVP 05/04/25 09:00 06/03/25 08:59 05/05/25 08:39 40 MG Prednisone (deltaSONE/ oraSONE 5MG) 5 mg DAILY PO 05/04/25 09:00 06/03/25 08:59 05/05/25 08:41 5 MG Sodium Chloride 1,000 ml @ 100 mls/hr Q10H IV 05/03/25 11:30 06/02/25 11:29 05/05/25 04:48 100 MLS/HR Tacrolimus (ProgRAF 1MG) 1 mg BID PO 05/03/25 21:00 06/02/25 20:59 05/05/25 08:39 1 MG Tamsulosin HCl (FloMAX) 0.4 mg HS PO 05/03/25 21:00 06/02/25 20:59 05/04/25 20:35 0.4 MG DIAGNOSTICS / RADIOLOGY: [ ] ASSESSMENT: Suspected gastroenteritis Acute kidney injury likely prerenal History of renal transplant Immunocompromised status History of dialysis Dehydration Hypertension Diabetes mellitus type 2 PLAN: - patient admitted to [facility] with tele -in reference to gastroenteritis. Stool for C difficile negative. Continue on Rocephin. CT of the abdomen and pelvis no acute findings. Continue The patienton NS for gentle hydration -obtain nephrology consultation. We will defer to Nephrology regarding continuing with anti rejection medication -we will request ID consultation -obtain home medications which will be reconciled once available -check procalcitonin, CRP, A1c -further orders per hospitalization course. Plan of action Discussed, all questions answered, agreed and understood the information provided BENNY NEWSOME MD May 05, 2025 11:13
[2025-05-05] MEDS: AZITHROMYCIN 250 MG TABLET PO ONE (14:21)
[2025-05-06] VITALS (8 sets, daily range): BP systolic 137–161; BP diastolic 54–78; PULSE 61–68; RESP 17–20; TEMP 97.5–98.6; O2SAT 97
--- NOTE | 2025-05-06 00:39 | NUR ---
nurse note patient alert and oriented times 3. plan of care discussed with him and he verbalized understanding. he has no pain. he is having fewer loose stools tonight. he has slept about 6 hours tonight. he has no pain. call light within reach, bed alarm on, 2 side rails up. will continue to monitor patient.
[2025-05-06 04:30] LABS: NUCLEATED RED BLOOD CELLS 0.0 % (0.0-0.19); PLATELET COUNT (AUTO) 156.0 K/uL (130-400); RED BLOOD CELL COUNT(AUTO) 4.2 MIL/uL (4.50-6.20); RED CELL DISTRIBUTION WIDTH 13.8 % (11.0-15.5); WHITE BLOOD COUNT (AUTO) 6.3 K/uL (4.8-10.8)
[2025-05-06 04:52] LABS: ASPARTATE AMINOTRANSFERASE 26.0 U/L (10-37); CREATININE 1.1 mg/dL (0.5-1.3); GLOMERULAR FILTR. RATE CALC 73.0 mL/min (>90); GLUCOSE,RANDOM 141.0 mg/dL (70-105); PHOSPHORUS 2.5 mg/dL (2.5-4.9); SODIUM SERUM 141.0 mmol/L (136-145); TOTAL PROTEIN, SERUM 5.9 g/dL (6.0-8.3); UREA NITROGEN, BLOOD 21.0 mg/dL (7-18)
--- NOTE | 2025-05-06 12:23 | PN ---
NEPHROLOGY PROGRESS NOTE Date/Time Patient Seen: May 06, 2025 SUBJECTIVE: This is a 69-year-old male with past medical history of hypertension, history of renal transplant in 2020 in [place] previously on dialysis, diabetes mellitus type 2 He presented to the hospital secondary to diarrhea. He takes tacrolimus, prednisone, mycophenolate at home. Imaging studies were noted He continues on gentle IV hydration He was noted with elevated BUN/creatinine We are consulted for renal failure Renal function and electrolytes are stable UA was noted He has been resumed on immunosuppressive medication Pending stool PCR Antibiotics has been changed to azithromycin He was seen in the medical floor, in no acute distress Continues to complain of diarrhea No family at the bedside Prognosis remains guarded REVIEW OF SYSTEMS: GENERAL: Positive for diarrhea and generalized weakness NEUROLOGIC: Negative for any blurry vision, blind spots, double vision, facial asymmetry, dysphagia, dysarthria, hemiparesis, hemisensory deficits, vertigo, ataxia. HEENT: Negative for any head trauma, neck trauma, neck stiffness, photophobia, phonophobia, sinusitis, rhinitis. CARDIAC: Negative for any chest pain, dyspnea on exertion, paroxysmal nocturnal dyspnea, peripheral edema. PULMONARY: Negative for any shortness of breath, wheezing, COPD, or TB exposure. GASTROINTESTINAL: Negative for any abdominal pain, nausea, vomiting, bright red blood per rectum, melena. GENITOURINARY: Negative for any dysuria, hematuria, incontinence. INTEGUMENTARY: Negative for any rashes, cuts, insect bites. RHEUMATOLOGIC: Negative for any joint pains, photosensitive rashes, history of vasculitis or kidney problems. HEMATOLOGIC: Negative for any abnormal bruising, frequent infections or bleeding. Vital Signs (last 8hr) Date Time Temp Pulse Resp B/P (MAP) Pulse Ox O2 Delivery O2 Flow Rate FiO2 05/06/25 12:01 98.6 67 19 137/54 97 Room Air 05/06/25 09:00 141/69 05/06/25 08:00 97.5 61 19 141/69 97 Room Air PHYSICAL EXAM: GENERAL: Alert and oriented x 3. No acute distress. Well-nourished. EYES: EOMI. Anicteric. HENT: Moist mucous membranes. No scleral icterus. No cervical lymphadenopathy. LUNGS: Clear to auscultation bilaterally. No accessory muscle use. CARDIOVASCULAR: Regular rate and rhythm. No murmur. No JVD. ABDOMEN: Soft, non-tender and non-distended. No palpable masses. EXTREMITIES: No edema. Non-tender. SKIN: No rashes or lesions. Warm. NEUROLOGIC: No focal neurological deficits. CN II-XII grossly intact, but not individually tested. PSYCHIATRIC: Cooperative. Appropriate mood and affect. Current Medications Medications (Trade) Dose Ordered Sig/Jamarcus Route Start Time Stop Time Status Last Admin Dose Admin Amlodipine Besylate (NorvASC 5MG TAB) 5 mg DAILY PO 05/04/25 09:00 06/03/25 08:59 05/05/25 08:39 5 MG Atorvastatin Calcium (LIPItor 20MG) 20 mg HS PO 05/03/25 21:00 06/02/25 20:59 05/04/25 20:35 20 MG Carvedilol (Coreg 25MG) 25 mg BID PO 05/03/25 21:00 06/02/25 20:59 05/05/25 08:39 25 MG Ceftriaxone Sodium (ROCEphine 1G INJ) 1 gm Q24H IVPB 05/03/25 11:30 05/13/25 11:29 05/04/25 11:46 1 GM Enoxaparin Sodium (Lovenox) 30 mg DAILY SQ 05/05/25 09:00 06/04/25 08:59 Famotidine (Pepcid 20mg Vial) 20 mg Q24H IV 05/03/25 21:00 05/03/25 14:58 DC Insulin Human Regular (humuLIN R 100 UNIT/ML 3ML) INSULIN SLIDING SCAL... ACHS SQ 05/03/25 16:30 06/02/25 16:29 05/04/25 11:47 2 UNIT Ketorolac Tromethamine (ketOROlac troMETHamine) 1 ML QID OP 05/03/25 21:00 06/02/25 20:59 05/05/25 08:40 1 ML Ketorolac Tromethamine (ketOROlac troMETHamine) 1 ml QID OP 05/03/25 21:00 05/03/25 20:29 DC Lactobacillus Rhamnosus ([facility] [employer]) 1 each BID PO 05/04/25 12:30 06/03/25 12:29 05/05/25 08:39 1 EACH Loperamide HCl (Immodium Liquid) 10 mg ONCE PO 05/04/25 19:00 05/04/25 23:30 DC 05/04/25 20:43 10 MG Magnesium Sulfate 50 ml @ 0 mls/hr PROTOCOL IV 05/04/25 10:30 06/03/25 10:29 05/05/25 04:48 15 MLS/HR Mycophenolate Mofetil (Cellcept) 500 mg BID PO 05/04/25 14:00 06/03/25 13:59 05/05/25 08:39 500 MG Pantoprazole Sodium (PROTonix 40MG INJ) 40 mg DAILY IVP 05/04/25 09:00 06/03/25 08:59 05/05/25 08:39 40 MG Prednisone (deltaSONE/ oraSONE 5MG) 5 mg DAILY PO 05/04/25 09:00 06/03/25 08:59 05/05/25 08:41 5 MG Sodium Chloride 1,000 ml @ 100 mls/hr Q10H IV 05/03/25 11:30 06/02/25 11:29 05/05/25 04:48 100 MLS/HR Tacrolimus (ProgRAF 1MG) 1 mg BID PO 05/03/25 21:00 06/02/25 20:59 05/05/25 08:39 1 MG Tamsulosin HCl (FloMAX) 0.4 mg HS PO 05/03/25 21:00 06/02/25 20:59 05/04/25 20:35 0.4 MG LABORATORY: [ ] Hematology Labs: Test 05/06/25 04:10 Range/Units White Blood Count 6.3 4.8-10.8 K/uL Red Blood Count 4.20 L 4.50-6.20 MIL/uL Hemoglobin 12.7 L 14.0-18.0 g/dL Hematocrit 37.7 L 42-54 % Mean Corpuscular Volume 89.8 79-99 fL Mean Corpuscular Hemoglobin 30.2 27.0-33.0 pg Mean Corpuscular Hemoglobin Concent 33.7 32.0-36.0 g/dL Red Cell Distribution Width 13.8 11.0-15.5 % Platelet Count 156 130-400 K/uL Mean Platelet Volume 9.8 7.5-10.5 fL Nucleated Red Blood Cells 0.0 0.0-0.19 % Chemistry Labs: Test 05/06/25 10:58 05/06/25 04:10 05/05/25 15:53 Range/Units Whole Blood Glucose 185 H 70-110 MG/DL Sodium Level 141 136-145 mmol/L Potassium Level 4.2 3.5-5.1 mmol/L Chloride Level 111 101-111 mmol/L Carbon Dioxide Level 21 21-32 mmol/L Blood Urea Nitrogen 21 H 7-18 mg/dL Creatinine 1.1 0.5-1.3 mg/dL Glomerular Filtration Rate Calc 73 >90 mL/min Random Glucose 141 H 70-105 mg/dL Total Calcium 8.9 8.5-10.1 mg/dL Phosphorus Level 2.5 2.5-4.9 mg/dL Magnesium Level 1.70 L 1.80-2.40 mg/dL Total Bilirubin 0.5 0.2-1.0 mg/dL Aspartate Amino Transf (AST/SGOT) 26 10-37 U/L Alanine Aminotransferase (ALT/SGPT) 30 12-78 U/L Alkaline Phosphatase 67 50-136 U/L Total Protein 5.9 L 6.0-8.3 g/dL Albumin 3.2 L 3.5-5.0 g/dL Bedside Glucose Comment Notified Nurse DIAGNOSTICS / RADIOLOGY: [address] [address] [place] [address] IMAGING REPORT Signed PATIENT: FABIOLA CANAS MR#: [id number] : 1955 SEX: M AGE: 69 LOCATION: [facility] ORDER 1500 STATUS: ADM IN REPORT#: [id number] SERVICE [id number] REASON: RENAL TRANSPLANT ORDERING PHYSICIAN: SCOTTY KELLER MD PROCEDURE: RENAL - US RENAL SONOGRAM EXAM: Ultrasound renal transplant with doppler imaging INDICATION: Renal transplant TECHNIQUE: Ding scale and color doppler images with spectral doppler of the kidney. REFERENCE EXAMINATION: None FINDINGS: Atrophy of the [place] kidneys with right renal cyst. Kidney demonstrates no hydronephrosis or perinephric fluid collection. Bladder appears unremarkable. The main renal artery is patent with peak systolic velocities as follows: renal hilum - 157 cm/s; renal mid - 114 cm/s; renal anas - 79 cm/s; intrarenal resistive indices range from 0.72 to 0.75 Peak systolic velocity in the external iliac artery is 111 cm/s. Main renal vein and external iliac vein are patent. IMPRESSION: Transplanted renal vasculature is patent /[place] DICTATED BY: PAMELA OCONNELL MD DATE: 05/03/251805 ELECTRONICALLY SIGNED BY: PAMELA OCONNELL MD DATE: 05/03/251805 PATIENT: FABIOLA CANAS MR#: [id number] : 1955 SEX: M AGE: 69 LOCATION: [facility] ORDER 05 STATUS: ADM IN REPORT#: [id number] SERVICE 110 REASON: GASTROENTERITIS, History of RENAL TRANSPLANT ORDERING PHYSICIAN: TOO TOMAS MD PROCEDURE: ABD PEL WO - CT ABDOMEN/PELVIS W/O CONTRAST EXAM: CT Abdomen and Pelvis Without IV contrast CLINICAL HISTORY: GASTROENTERITIS, History of RENAL TRANSPLANT TECHNIQUE: Axial computed tomography images of the abdomen and pelvis without intravenous contrast. CONTRAST: No IV contrast. COMPARISON: None provided. FINDINGS: LUNG BASES: There is subtle subpleural interlobular septal thickening at the posterobasal segment of the bilateral lower lobe. No pleural effusions are seen. LIVER: Hepatic steatosis. GALLBLADDER AND BILE DUCTS: Gallbladder not visualised separately, suggestive of a history of surgery. No biliary ductal dilatation is evident. PANCREAS: Unremarkable. SPLEEN: Unremarkable. ADRENAL GLANDS: Unremarkable. KIDNEYS, URETERS, AND BLADDER: Bilateral kidneys noted in the bilateral lumbar region, appearing atrophied with lobulated surfaces, suggestive of chronic kidney disease. Approximately 20 x 16 mm-sized simple cyst at the lower pole of the right kidney. The transplanted kidney measures approximately 10 x 4.9 cm and is visualized at the right iliac fossa region. There is no hydronephrosis or hydroureter. No urinary calculi are seen. STOMACH AND BOWEL: Unremarkable appearance of the stomach and bowel. No evidence of bowel obstruction. No evidence suggesting enteritis or colitis. APPENDIX: No evidence of acute appendicitis on CT examination. PERITONEUM: No free fluid. No free air. LYMPH NODES: No lymphadenopathy is evident. REPRODUCTIVE: Unremarkable as visualized. VASCULATURE: No evidence of abdominal aortic aneurysm. BONES: Osseous degenerative changes in the form of marginal osteophytes and vacuum phenomenon. Endplate degenerative changes involving the opposing articular surface of the L3-L4 vertebral body with subchondral sclerosis and vacuum phenomenon., Loss of normal lumbar lordosis No aggressive appearing osseous lesion. No acute osseous pathology evident.IMPRESSION: 1. No acute intraabdominal or pelvic pathology. 2. Bilateral atrophic [place] kidneys with lobulated surfaces, consistent with chronic kidney disease. Right iliac fossa transplant kidney, measuring 10 x 4.9 cm. /[place] DICTATED BY: ROSALINE DIANE Jr., MD DATE: 05/03/251322 ELECTRONICALLY SIGNED BY: ROSALINE DIANE Jr., MD DATE: 05/03/251322 ASSESSMENT: Suspected gastroenteritis Acute kidney injury History of renal transplant Immunocompromised status Dehydration Hypertension Diabetes mellitus type 2 PLAN: Labs, diagnostic, radiologic exams reviewed and interpreted by myself and supervising physician. We have reviewed external records in detail Continue with the immunosuppressive medication. Require close monitoring of renal function and electrolytes Order CBC, CMP, and electrolytes in am Renal diabetic diet BiPAP as necessary, for respiratory distress Monitor blood pressure adjust medication doses as needed Avoid hypotensive episodes May use Dilaudid 0.5 mg IV every 6 hours as needed for severe pain Monitor blood sugars Strict intake, output, and daily weight should be monitored Please renally adjust medications Avoid nephrotoxic and nonsteroidal drugs Avoid contrast if possible Will continue to monitor renal function, anemia, electrolytes Treatment plan discussed with patient Questions were answered We have discussed with the other team physicians in detail about the care plan We will continue to monitor the patient closely ATTESTATION BY PHYSICIAN I have seen and examined the patient. I reviewed the documentation, medical decision making, and treatment plan as noted by the mid-level provider above. I agree with the findings and plan of care. SCOTTY KELLER MD, [facility] May 06, 2025 12:23
[2025-05-06] MEDS ORDERED: MAGNESIUM 2GM PREMIX 50ML 50 ML IV SCH (13:30)
[2025-05-06] MEDS: AZITHROMYCIN 250 MG TABLET PO SCH (13:42)
--- NOTE | 2025-05-06 14:10 | NUR ---
ROUND DR TRENT AT BEDSIDE. PT STATES HAS ONLY HAD ONCE LOOSE STOOL. TODAY. DENIES ANY PAIN AT THE MOMENT
--- NOTE | 2025-05-06 15:51 | PN ---
[facility] PROGRESS NOTE Date of Service: May 06, 2025 Time of Service: 15:50 SUBJECTIVE: Patient remains admitted to the medical floor, BP 136/65, afebrile, saturating normal on room air. Hemoglobin 13.9, hematocrit 42.8, WBC 7.0, platelet count of 144. Sodium 141, potassium 4.6, BUN 31, creatinine 1.5, magnesium 1.0, stool for C difficile negative toxigenic C diff, negative antigen, negative C difficile a/B toxin. CT abdomen and pelvis no acute intra-abdominal or pelvic pathology, bilateral atrophic [place] kidneys without loculated surfaces, consistent with chronic kidney disease, right iliac fossa transplant kidney, measuring 10 x 4.9 cm. At the time of my visit the patient is comfortably in bed, he is watching TV, alert oriented x3, denies abdominal discomfort, however still admits to loose stools. Case discussed with the RN, no acute events overnight, patient is scheduled IV antibiotics at the time of my visit. Discussed with the patient. We will add Culturelle one capsule p.o. b.i.d.. 05/05 patient remains admitted to the medical floor, hemodynamically stable, afebrile, saturating normal on room air. Hemoglobin 12.8, hematocrit 39.2. WBC 7.4, platelet count 149. Stool for C difficile negative. Blood culture so far negative. Renal ultrasound transplanted renal vasculature is patent. We will switch antibiotics from Rocephin to azithromycin p.o.. Patient is still with loose stools. Continue Culturelle. 05/06 patient is seen and examined at bedside, case discussed with the RN, no acute events overnight, patient had one episode of watery stool earlier this morning, only two yesterday. Denies chest pain, shortness shortness for breath, no nausea, no vomiting. He remains on azithromycin p.o. and Culturelle. We will give a full liquid diet, tolerating well. Possible discharge home tomorrow if medically stable. REVIEW OF SYSTEMS CONSTITUTIONAL: Denies fevers, chills, or night sweats. No unintentional weight loss reported. NEUROLOGICAL: Denies headache, amaurosis fugax, motor weakness, sensory deficit, vertigo/spinning sensation, gait abnormalities, or tremors. ENT: No hearing loss, otalgia, otorrhea, rhinitis, rhinorrhea, hoarseness, or sore throat. CARDIOVASCULAR: Denies any exertional angina, dyspnea on exertion, orthopnea, paroxysmal nocturnal dyspnea, palpitations, life-threatening arrhythmias, claudication. PULMONARY: Denies any shortness of breath, cough, phlegm/sputum, hemoptysis, pleuritic chest pain. SLEEP: Denies morning headaches, daytime somnolence or napping. Denies difficulty falling asleep, staying asleep, waking from sleep. Denies knowledge of snoring. GASTROINTESTINAL: Positive for diarrhea, nausea, abdominal pain. Denied any vomiting, melena, hematochezia, hematemesis. GENITOURINARY: Denies frequency, urgency, nocturia, hematuria or incontinence (Storage/Irritative symptoms.) Low urinary stream, straining to void, urinary intermittency or hesitancy, splitting of the voiding stream, terminal dribbling. ENDOCRINOLOGIC: Denies polyuria, polydipsia, polyphagia or heat/cold intolerances. HEMATOLOGIC: Denies thrombophilia/previous clots, or coagulopathy/bleeding disorders. ONCOLOGIC: Denies personal history of malignancy. DERMATOLOGIC: Denies rashes or pruritus. PSYCHIATRIC: Denies any suicidal or homicidal ideation. Denies hallucinations. PHYSICAL EXAM GENERAL APPEARANCE: The patient is awake, alert, and oriented, in no acute cardiopulmonary distress. NEUROLOGICAL: Cranial nerves II-XII grossly intact. Motor is 5/5 in bilateral upper and lower extremities proximal to distal. No sensory deficits. HEENT: Face is symmetric. Pupils are equal and reactive. Extraocular movements are intact. NECK: Supple. No JVD. No thyromegaly. No submental, submandibular, pre- /postauricular, occipital or supraclavicular lymphadenopathy. CHEST: Normal chest expansion. No Telemetry. LUNGS: Absence of any rales, rhonchi or any wheezing. CARDIOVASCULAR: Regular. S1 and S2 normal. No appreciable rubs, murmurs or gallops. ABDOMEN: Soft, nontender, and nondistended. There is no rebound, voluntary guarding, or rigidity. : Deferred. No [place]asso. EXTREMITIES: Non-edematous and not cyanotic. No clubbing. Good capillary refill. SKIN: No skin breakdown. Vital Signs (last 8hr) Date Time Temp Pulse Resp B/P (MAP) Pulse Ox O2 Delivery O2 Flow Rate FiO2 05/06/25 12:01 98.6 67 19 137/54 97 Room Air 05/06/25 09:00 97 Room Air* 0 21 05/06/25 09:00 141/69 05/06/25 08:00 97.5 61 19 141/69 97 Room Air LABS: Laboratory: Test 05/06/25 15:04 05/06/25 04:10 05/05/25 15:53 05/04/25 19:42 Range/Units Whole Blood Glucose 190 H 70-110 MG/DL White Blood Count 6.3 4.8-10.8 K/uL Red Blood Count 4.20 L 4.50-6.20 MIL/uL Hemoglobin 12.7 L 14.0-18.0 g/dL Hematocrit 37.7 L 42-54 % Mean Corpuscular Volume 89.8 79-99 fL Mean Corpuscular Hemoglobin 30.2 27.0-33.0 pg Mean Corpuscular Hemoglobin Concent 33.7 32.0-36.0 g/dL Red Cell Distribution Width 13.8 11.0-15.5 % Platelet Count 156 130-400 K/uL Mean Platelet Volume 9.8 7.5-10.5 fL Nucleated Red Blood Cells 0.0 0.0-0.19 % Sodium Level 141 136-145 mmol/L Potassium Level 4.2 3.5-5.1 mmol/L Chloride Level 111 101-111 mmol/L Carbon Dioxide Level 21 21-32 mmol/L Blood Urea Nitrogen 21 H 7-18 mg/dL Creatinine 1.1 0.5-1.3 mg/dL Glomerular Filtration Rate Calc 73 >90 mL/min Random Glucose 141 H 70-105 mg/dL Total Calcium 8.9 8.5-10.1 mg/dL Phosphorus Level 2.5 2.5-4.9 mg/dL Magnesium Level 1.70 L 1.80-2.40 mg/dL Total Bilirubin 0.5 0.2-1.0 mg/dL Aspartate Amino Transf (AST/SGOT) 26 10-37 U/L Alanine Aminotransferase (ALT/SGPT) 30 12-78 U/L Alkaline Phosphatase 67 50-136 U/L Total Protein 5.9 L 6.0-8.3 g/dL Albumin 3.2 L 3.5-5.0 g/dL Bedside Glucose Comment Notified Nurse Stool Lactoferrin ([facility]) POSITIVE H NEGATIVE Current Medications Medications (Trade) Dose Ordered Sig/Jamarcus Route PRN Reason Start Time Stop Time Status Last Admin Dose Admin Acetaminophen (TYLenol 500MG TAB) 500 mg Q6H PRN PO MILD PAIN (1-3) 05/03/25 11:30 06/02/25 11:29 05/05/25 01:16 500 MG Amlodipine Besylate (NorvASC 5MG TAB) 5 mg DAILY PO 05/04/25 09:00 06/03/25 08:59 05/06/25 09:00 5 MG Atorvastatin Calcium (LIPItor 20MG) 20 mg HS PO 05/03/25 21:00 06/02/25 20:59 05/05/25 19:43 20 MG Azithromycin (Zithromax) 250 mg Q24H PO 05/06/25 14:00 05/09/25 14:00 05/06/25 13:42 250 MG Carvedilol (Coreg 25MG) 25 mg BID PO 05/03/25 21:00 06/02/25 20:59 05/06/25 09:00 25 MG Ceftriaxone Sodium (ROCEphine 1G INJ) 1 gm Q24H IVPB 05/03/25 11:30 05/05/25 13:37 DC 05/05/25 12:39 1 GM Dextrose (D50w) 50 ml AD PRN IV HYPOGLYCEMIA PROTOCOL 05/03/25 12:00 06/02/25 11:59 Enoxaparin Sodium (Lovenox) 30 mg DAILY SQ 05/05/25 09:00 06/04/25 08:59 Famotidine (Pepcid 20mg Vial) 20 mg Q24H IV 05/03/25 21:00 05/03/25 14:58 DC Glucagon (Glucagon 1mg Kit) 1 mg AD PRN IM HYPOGLYCEMIA PROTOCOL 05/03/25 12:00 06/02/25 11:59 Hydralazine HCl (APRESOLine 20MG INJ) 10 mg Q6H PRN IV ADMINISTER FOR SBP > 180 05/03/25 11:30 06/02/25 11:29 05/03/25 20:21 10 MG Insulin Human Regular (humuLIN R 100 UNIT/ML 3ML) INSULIN SLIDING SCAL... ACHS SQ 05/03/25 16:30 06/02/25 16:29 05/06/25 12:10 2 UNIT Ketorolac Tromethamine (ketOROlac troMETHamine) 1 ML QID OP 05/03/25 21:00 06/02/25 20:59 05/06/25 12:11 1 ML Ketorolac Tromethamine (ketOROlac troMETHamine) 1 ml QID OP 05/03/25 21:00 05/03/25 20:29 DC Lactobacillus Rhamnosus ([facility]) 1 each BID PO 05/04/25 12:30 06/03/25 12:29 05/06/25 09:00 1 EACH Loperamide HCl (Immodium Liquid) 5 mg Q6H PRN PO DIARRHEA 05/04/25 19:00 06/03/25 18:59 05/05/25 10:00 5 MG Loperamide HCl (Immodium Liquid) 10 mg ONCE PO 05/04/25 19:00 05/04/25 23:30 DC 05/04/25 20:43 10 MG Magnesium Sulfate 50 ml @ 0 mls/hr PROTOCOL IV 05/04/25 10:30 06/03/25 10:29 05/06/25 05:23 15 MLS/HR Magnesium Sulfate 50 ml @ 0 mls/hr PROTOCOL IV 05/06/25 13:30 05/06/25 13:03 DC Magnesium Sulfate 50 ml @ 0 mls/hr PROTOCOL PRN IV h 05/04/25 05:00 05/04/25 10:21 DC 05/04/25 05:56 15 MLS/HR Morphine Sulfate (morPHINE 2MG SYG) 2 mg Q4H PRN IVP SEVERE PAIN (7-10) 05/03/25 22:00 05/10/25 21:59 05/03/25 21:49 2 MG Mycophenolate Mofetil (Cellcept) 500 mg BID PO 05/04/25 14:00 06/03/25 13:59 05/06/25 09:00 500 MG Ondansetron HCl (zoFRAN 4MG INJ) 4 mg Q6H PRN IVP NAUSEA/VOMITING 05/03/25 11:30 06/02/25 11:29 Pantoprazole Sodium (PROTonix 40MG INJ) 40 mg DAILY IVP 05/04/25 09:00 06/03/25 08:59 05/06/25 09:00 40 MG Prednisone (deltaSONE/ oraSONE 5MG) 5 mg DAILY PO 05/04/25 09:00 06/03/25 08:59 05/06/25 09:00 5 MG Sodium Chloride 1,000 ml @ 100 mls/hr Q10H IV 05/03/25 11:30 05/05/25 13:20 DC 05/05/25 04:48 100 MLS/HR Tacrolimus (ProgRAF 1MG) 1 mg BID PO 05/03/25 21:00 06/02/25 20:59 05/06/25 08:59 1 MG Tamsulosin HCl (FloMAX) 0.4 mg HS PO 05/03/25 21:00 06/02/25 20:59 05/05/25 19:43 0.4 MG DIAGNOSTICS / RADIOLOGY: [ ] ASSESSMENT: Suspected gastroenteritis Acute kidney injury likely prerenal History of renal transplant Immunocompromised status History of dialysis Dehydration Hypertension Diabetes mellitus type 2 PLAN: - patient admitted to [facility] with tele -in reference to gastroenteritis. Stool for C difficile negative. Continue on Rocephin. CT of the abdomen and pelvis no acute findings. Continue The patienton NS for gentle hydration -obtain nephrology consultation. We will defer to Nephrology regarding continuing with anti rejection medication -we will request ID consultation -obtain home medications which will be reconciled once available -check procalcitonin, CRP, A1c -further orders per hospitalization course. Plan of action Discussed, all questions answered, agreed and understood the information provided BENNY NEWSOME MD May 06, 2025 15:51
--- NOTE | 2025-05-06 21:52 | PN ---
INFECTIOUS DISEASE PROGRESS NOTE Date of Service: May 06, 2025 SUBJECTIVE: This is a 69-year-old male patient who was seen and examined at bedside. Patient reported that diarrhea is less today. Stated that he has only had 3 diarrhea episodes since midnight to noon today. Pending stool culture results. Patient is currently on azithromycin and no reports of nausea or vomiting. Patient is afebrile, temperature is 98.6. We will continue to follow patient's care. PHYSICAL EXAM EYES: Anicteric. Pupils equal and reactive. HENT: No oral thrush seen, moist Oral mucosa. NECK: Supple, no JVD or thyromegaly. LUNGS: Good air entry. No rales, no rhonchi. CARDIOVASCULAR: S1, S2 regular. No murmur heard. ABDOMEN: Soft, non tender, bowel sounds present, no organomegaly. CENTRAL NERVOUS SYSTEM: Awake, alert, oriented x 3. SKIN: No rashes, no swelling. LYMPHATICS: No peripheral lymphadenopathy. MUSCULOSKELETAL: No joint swelling, erythema or tenderness. EXTREMITIES: No cyanosis or clubbing. BACK: No deformity, no pressure ulcer. GENITOURINARY: No dysuria or hematuria. Vital Sign (Last 12 Hours) 05/06/25 05/06/25 05/06/25 05/06/25 12:01 16:26 20:00 20:59 Temp 98.6 98.1 98.1 Pulse 67 68 68 Resp 19 19 18 B/P (MAP) 137/54 161/78 145/71 145/71 Pulse Ox 97 99 98 O2 Delivery Room Air Room Air Room Air Intake & Output (last 24hrs) 05/05/25 05/05/25 05/06/25 15:00 23:00 07:00 Intake Total 600 ml Output Total 200 ml 550 ml Balance -200 ml 50 ml LABS: Laboratory: Test 05/06/25 19:59 05/06/25 04:10 05/05/25 15:53 Range/Units Whole Blood Glucose 152 H 70-110 MG/DL White Blood Count 6.3 4.8-10.8 K/uL Red Blood Count 4.20 L 4.50-6.20 MIL/uL Hemoglobin 12.7 L 14.0-18.0 g/dL Hematocrit 37.7 L 42-54 % Mean Corpuscular Volume 89.8 79-99 fL Mean Corpuscular Hemoglobin 30.2 27.0-33.0 pg Mean Corpuscular Hemoglobin Concent 33.7 32.0-36.0 g/dL Red Cell Distribution Width 13.8 11.0-15.5 % Platelet Count 156 130-400 K/uL Mean Platelet Volume 9.8 7.5-10.5 fL Nucleated Red Blood Cells 0.0 0.0-0.19 % Sodium Level 141 136-145 mmol/L Potassium Level 4.2 3.5-5.1 mmol/L Chloride Level 111 101-111 mmol/L Carbon Dioxide Level 21 21-32 mmol/L Blood Urea Nitrogen 21 H 7-18 mg/dL Creatinine 1.1 0.5-1.3 mg/dL Glomerular Filtration Rate Calc 73 >90 mL/min Random Glucose 141 H 70-105 mg/dL Total Calcium 8.9 8.5-10.1 mg/dL Phosphorus Level 2.5 2.5-4.9 mg/dL Magnesium Level 1.70 L 1.80-2.40 mg/dL Total Bilirubin 0.5 0.2-1.0 mg/dL Aspartate Amino Transf (AST/SGOT) 26 10-37 U/L Alanine Aminotransferase (ALT/SGPT) 30 12-78 U/L Alkaline Phosphatase 67 50-136 U/L Total Protein 5.9 L 6.0-8.3 g/dL Albumin 3.2 L 3.5-5.0 g/dL Bedside Glucose Comment Notified Nurse ASSESSMENT: Noninfectious gastroenteritis. Dehydration. Diabetes mellitus. History of renal transplant. PLAN: Continue antirejection transplant medications. Continue azithromycin as currently scheduled. GI prophylaxis. Continue antidiabetics. Continue pain management. We will monitor electrolytes. This case was reviewed and discussed with my supervising physician and the above assessment and plan was formulated and agreed upon. ATTESTATION BY PHYSICIAN I have seen and examined the patient. I reviewed the documentation, medical decision making, and treatment plan as noted by the mid-level provider above. I agree with the findings and plan of care. DIMITRIS TRENT MD, [facility] May 06, 2025 21:52
[2025-05-07 03:47] VITALS: BP 133/50; PULSE 60; RESP 17; TEMP 97.8
[2025-05-07 04:27] LABS: NUCLEATED RED BLOOD CELLS 0.0 % (0.0-0.19); PLATELET COUNT (AUTO) 170.0 K/uL (130-400); RED BLOOD CELL COUNT(AUTO) 4.34 MIL/uL (4.50-6.20); RED CELL DISTRIBUTION WIDTH 13.6 % (11.0-15.5); WHITE BLOOD COUNT (AUTO) 7.3 K/uL (4.8-10.8)
[2025-05-07 04:35] LABS: CREATININE 1.1 mg/dL (0.5-1.3); GLOMERULAR FILTR. RATE CALC 73.0 mL/min (>90); GLUCOSE,RANDOM 136.0 mg/dL (70-105); SODIUM SERUM 140.0 mmol/L (136-145); UREA NITROGEN, BLOOD 18.0 mg/dL (7-18)
[2025-05-07 08:05] VITALS: BP 146/68; PULSE 65; RESP 18; TEMP 97.8
[2025-05-07 09:02] VITALS: O2SAT 96
[2025-05-07 11:55] VITALS: PULSE 78
[2025-05-07 12:00] VITALS: BP 130/61; PULSE 67; RESP 19; TEMP 97.9
[2025-05-07] MEDS ORDERED: AZIT250T PO (12:08)
--- NOTE | 2025-05-07 12:10 | DS ---
Discharge Summary Hospital Course Summary: Patient admitted to the hospital April 25, 2025 with the following history of the present illness: 69-year-old male with past medical history of hypertension, history of renal tra nsplant in 2020 in [place] previously on dialysis, diabetes mellitus type 2 presented to the hospital secondary to diarrhea. Patient states around two days ago he went to work with his friend outside. 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 He felt he might have over exerted himself. Since then he has noted loose watery stools at home. He has had around 10 episodes of diarrhea which is nonbloody. He denies any melena, hematochezia, hematemesis. Additionally he has felt nauseated without any episodes of vomiting. He has been drinking liquids at home. He gets diarrhea after he eats. He denies any sick contacts, chest pain, shortness of breath cough, dysuria. Complains of mild abdominal discomfort primarily located in the left upper quadrant. He took one dose of amoxicillin yesterday. Denied any recent antibiotic therapy otherwise. He takes tacrolimus, prednisone, mycophenolate at home. 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 He denied any falls, syncopal episode. He has been feeling weak since he has not been eating very well since diarrhea started. Additionally also took a dose of Imodium yesterday. Secondary to non improving symptoms patient thereafter came to the hospital for further evaluation. Labs in the ED were notable for white count of 9.4, hemoglobin was 15.9, platelet count was 163 K, sodium was 140, potassium was 4.8, creatinine was 1.7, BUN was 31, AST was mildly 51. In the ED patient received 1 L NS, pantoprazole, Zofran. Hospital course 05/04 Patient remains admitted to the medical floor, BP 136/65, afebrile, saturating normal on room air. Hemoglobin 13.9, hematocrit 42.8, WBC 7.0, platelet count of 144. Sodium 141, potassium 4.6, BUN 31, creatinine 1.5, magnesium 1.0, stool for C difficile negative toxigenic C diff, negative antigen, negative C difficile a/B toxin. CT abdomen and pelvis no acute intra-abdominal or pelvic pathology, bilateral atrophic [place] kidneys without loculated surfaces, consistent with chronic kidney disease, right iliac fossa transplant kidney, measuring 10 x 4.9 cm. At the time of my visit the patient is comfortably in bed, he is watching TV, alert oriented x3, denies abdominal discomfort, however still admits to loose stools. Case discussed with the RN, no acute events overnight, patient is scheduled IV antibiotics at the time of my visit. Discussed with the patient. We will add Culturelle one capsule p.o. b.i.d.. 05/05 patient remains admitted to the medical floor, hemodynamically stable, afebrile, saturating normal on room air. Hemoglobin 12.8, hematocrit 39.2. WBC 7.4, platelet count 149. Stool for C difficile negative. Blood culture so far negative. Renal ultrasound transplanted renal vasculature is patent. We will switch antibiotics from Rocephin to azithromycin p.o.. Patient is still with loose stools. Continue Culturelle. 05/06 patient is seen and examined at bedside, case discussed with the RN, no acute events overnight, patient had one episode of watery stool earlier this morning, only two yesterday. Denies chest pain, shortness shortness for breath, no nausea, no vomiting. He remains on azithromycin p.o. and Culturelle. We will give a full liquid diet, tolerating well. Possible discharge home tomorrow if medically stable. 05/07 patient alert oriented x3, hemodynamically stable, no nausea, no vomiting, no abdominal discomfort, no diarrhea, tolerating diet well, we will like to be discharged home. PHYSICAL EXAM GENERAL APPEARANCE: The patient is awake, alert, and oriented, in no acute cardiopulmonary distress. NEUROLOGICAL: Cranial nerves II-XII grossly intact. Motor is 5/5 in bilateral upper and lower extremities proximal to distal. No sensory deficits. HEENT: Face is symmetric. Pupils are equal and reactive. Extraocular movements are intact. NECK: Supple. No JVD. No thyromegaly. No submental, submandibular, pre- /postauricular, occipital or supraclavicular lymphadenopathy. CHEST: Normal chest expansion. No Telemetry. LUNGS: Absence of any rales, rhonchi or any wheezing. CARDIOVASCULAR: Regular. S1 and S2 normal. No appreciable rubs, murmurs or gallops. ABDOMEN: Soft, nontender, and nondistended. There is no rebound, voluntary guarding, or rigidity. : Deferred. No Jasso. EXTREMITIES: Non-edematous and not cyanotic. No clubbing. Good capillary refill. SKIN: No skin breakdown. Patient Support Partner(s): Infectious Disease and Nephrology Assessment/Plan: Final diagnosis Suspected gastroenteritis resolved Acute kidney injury likely prerenal History of renal transplant Immunocompromised status History of dialysis Dehydration Hypertension Diabetes mellitus type 2 Discharge Instructions: Patient to follow with primary care physician as an outpatient and to return to hospital if condition changes, patient agreed with plan and understood the information provided. Prescription for azithromycin 250 mg p.o. daily for total of two additional doses has been prescribed. Home Medications: Reported Medications Acetaminophen (Tylenol Extra Strength) 500 Mg Tablet, 1 TAB PO TIDP PRN for pain or fever for 3 Days, #10 TAB 0 Refills 05/03/25 Tacrolimus (Tacrolimus) 1 Mg Capsule, 1 CAP PO BID for 30 Days, #60 CAP 0 Refills 05/03/25 Ketorolac Tromethamine (Ketorolac Tromethamine) 0.5 % Drops, 1 DROP OP QID for itching, #5 ML 0 Refills 05/03/25 Tamsulosin HCl (Flomax) 0.4 Mg Cap.er.24h, 0.4 MG PO HS, CAPSULE.DR 05/03/25 Pantoprazole Sodium (Pantoprazole Sodium) 40 Mg Tablet.dr, 1 TAB PO DAILY for 30 Days, #30 TAB 0 Refills 05/03/25 Amlodipine Besylate (Amlodipine Besylate) 5 Mg Tablet, 1 TAB PO DAILY for 30 Days, #30 TAB 0 Refills 05/03/25 Carvedilol (Carvedilol) 25 Mg Tablet, 1 TAB PO BID for 30 Days, #60 TAB 0 Refills 05/03/25 Rosuvastatin Calcium (Rosuvastatin Calcium) 5 Mg Tablet, 1 TAB PO HS for high cholesterol for 30 Days, #30 TAB 0 Refills 05/03/25 Prednisone (Prednisone) 5 Mg Tablet, 1 TAB PO DAILY for 30 Days, #30 TAB 0 Refills 05/03/25 [Novolog 70/30] No Conflict Check, SQ 06/28/14 [Lantus] No Conflict Check, SQ HS 06/28/14 Discontinued Reported Medications [Ranitidine] No Conflict Check, 150 MG PRN for PRN 06/28/14 [Hydralazine] No Conflict Check, 10 MG PO TID 06/28/14 Febuxostat (Uloric) 40 Mg Tablet, 40 MG PO PM, TAB 06/28/14 Pregabalin (Lyrica) 75 Mg Cap, 75 MG PO TID, CAP 06/28/14 Tamsulosin HCl (Tamsulosin HCl) 0.4 Mg Cap.er.24h, 0.4 MG PO DAILY, CAPSULE.DR 06/28/14 Furosemide (Furosemide) 40 Mg Tablet, 40 MG PO DAILY PRN for PRN, TAB 06/28/14 [Metoprolol] No Conflict Check, 100 MG PO PM 06/28/14 [Amlodipine] No Conflict Check, 10 MG PO DAILY 06/28/14 Discontinued Scripts Diclofenac Sodium (Diclofenac Sodium) 3 % Gel..gram., 100 GM TP TID for MUSCLE PAIN, #60 GM Apply small amount to affected muscle 3 times a day and massage in for 7 days. Prov:DANIELLE CAMPUZANO NP 12/27/23 Time spent arranging discharge: 31-60 minutes BENNY NEWSOME MD May 07, 2025 12:10
--- NOTE | 2025-05-07 14:04 | PN ---
INFECTIOUS DISEASE PROGRESS NOTE Date of Service: May 07, 2025 SUBJECTIVE: Patient is awake, alert and oriented x3. Ambulating without difficulty. Denying nausea or vomiting. No diarrhea reported this morning. Patient is being discharged today oral azithromycin. No other issues reported by nursing. PHYSICAL EXAM EYES: Anicteric. Pupils equal and reactive. HENT: No oral thrush seen, moist Oral mucosa. NECK: Supple, no JVD or thyromegaly. LUNGS: Good air entry. No rales, no rhonchi. CARDIOVASCULAR: S1, S2 regular. No murmur heard. ABDOMEN: Soft, non tender, bowel sounds present, no organomegaly. CENTRAL NERVOUS SYSTEM: Awake, alert, oriented x 3. SKIN: No rashes, no swelling. LYMPHATICS: No peripheral lymphadenopathy. MUSCULOSKELETAL: No joint swelling, erythema or tenderness. EXTREMITIES: No cyanosis or clubbing. BACK: No deformity, no pressure ulcer. GENITOURINARY: No dysuria or hematuria. Vital Sign (Last 12 Hours) 05/07/25 05/07/25 05/07/25 05/07/25 03:47 08:05 09:02 11:55 Temp 97.9 97.9 Pulse 60 65 78 Resp 17 18 B/P (MAP) 133/50 146/68 146/68 Pulse Ox 98 96 O2 Delivery Room Air Room Air 05/07/25 12:00 Temp 97.9 Pulse 67 Resp 19 B/P (MAP) 130/61 Pulse Ox 96 O2 Delivery Room Air Intake & Output (last 24hrs) 05/06/25 05/06/25 05/07/25 15:00 23:00 07:00 Intake Total 800 ml 400 ml 50.0 ml Balance 800 ml 400 ml 50.0 ml LABS: Laboratory: Test 05/07/25 10:54 05/07/25 03:53 05/06/25 04:10 05/05/25 15:53 Range/Units Whole Blood Glucose 206 #H 70-110 MG/DL White Blood Count 7.3 4.8-10.8 K/uL Red Blood Count 4.34 L 4.50-6.20 MIL/uL Hemoglobin 12.9 L 14.0-18.0 g/dL Hematocrit 38.5 L 42-54 % Mean Corpuscular Volume 88.7 79-99 fL Mean Corpuscular Hemoglobin 29.7 27.0-33.0 pg Mean Corpuscular Hemoglobin Concent 33.5 32.0-36.0 g/dL Red Cell Distribution Width 13.6 11.0-15.5 % Platelet Count 170 130-400 K/uL Mean Platelet Volume 9.7 7.5-10.5 fL Nucleated Red Blood Cells 0.0 0.0-0.19 % Sodium Level 140 136-145 mmol/L Potassium Level 3.9 3.5-5.1 mmol/L Chloride Level 108 101-111 mmol/L Carbon Dioxide Level 24 21-32 mmol/L Blood Urea Nitrogen 18 7-18 mg/dL Creatinine 1.1 0.5-1.3 mg/dL Glomerular Filtration Rate Calc 73 >90 mL/min Random Glucose 136 H 70-105 mg/dL Total Calcium 9.2 8.5-10.1 mg/dL Magnesium Level 1.60 L 1.80-2.40 mg/dL Phosphorus Level 2.5 2.5-4.9 mg/dL Total Bilirubin 0.5 0.2-1.0 mg/dL Aspartate Amino Transf (AST/SGOT) 26 10-37 U/L Alanine Aminotransferase (ALT/SGPT) 30 12-78 U/L Alkaline Phosphatase 67 50-136 U/L Total Protein 5.9 L 6.0-8.3 g/dL Albumin 3.2 L 3.5-5.0 g/dL Bedside Glucose Comment Notified Nurse ASSESSMENT: Noninfectious gastroenteritis. Dehydration. Diabetes mellitus. History of renal transplant. PLAN: Patient is being discharged today on oral azithromycin. This case was reviewed and discussed with my supervising physician and the above assessment and plan was formulated and agreed upon. ATTESTATION BY PHYSICIAN I have seen and examined the patient. I reviewed the documentation, medical decision making, and treatment plan as noted by the mid-level provider above. I agree with the findings and plan of care. DIMITRIS TRENT MD, [facility] May 07, 2025 14:04
--- NOTE | 2025-05-07 15:00 | NUR ---
DISCHARGE PT PIV DC'D BY LINA GIBBONS PT VERBALIZED UNDERSTANDING OF DC INSTRUCTIONS PT GATHERED AND TOOK ALL BELONGINGS PT HAD NO FURTHER QUESTIONS AT TIME OF DISCHARGE
[2025-05-07 15:14] LABS: GIARDIA ANTIGEN BY EIA Negative (Negative)
[2025-05-07 17:11] LABS: C DIFFICILE TOXIN A/B Not Detected (Not Detected); ENTEROAGGREGATIVE ECOLI Not Detected (Not Detected); GIARDIA LAMBLIA Not Detected (Not Detected); PLESIOMONAS SHIGELOIDES Not Detected (Not Detected); SAPOVIRUS Not Detected (Not Detected); SHIGELLA/ENTEROINVASIVE E COLI Not Detected (Not Detected); VIBRIO Not Detected (Not Detected); VIBRIO CHOLERAE Not Detected (Not Detected)
--- NOTE | 2025-05-07 20:52 | PN ---
NEPHROLOGY NOTE SUBJECTIVE: Renal failure, anemia, diarrhea. The patient has a kidney transplantation status. The patient does have underlying problems as detailed. He is getting antibiotics for possible infectious diarrhea. The patient had BUN and creatinine elevated before. He has underlying diabetes, hypertension, history of noncompliance. He remains on immunosuppressive. PHYSICAL EXAMINATION: GENERAL: Pale, no other distress or deformities, lying in bed. VITAL SIGNS: Blood pressure is 146/68, pulse 65, respiratory rate is 18, afebrile. HEENT: Head is atraumatic, normocephalic. Pupils are round and reactive to light. Sclerae are anicteric. Conjunctivae not pale. Oral mucosa is not dry. NECK: Supple. No masses or bruits. Thyroid is palpable. Neck has no bruits. CHEST: Shows equal thoracic percussion note being resonant in all areas. CARDIAC: Regular rhythm. No rub. No S3, S4. No parasternal heave. ABDOMEN: No guarding or tenderness. Bowel sounds are normoactive. No free fluid. EXTREMITIES: With no edema and no cyanosis or clubbing. BACK: No tenderness or back deformities. LABORATORY DATA: I have reviewed available labs in detail with a BUN of 18, creatinine 1.1. Imaging studies are reviewed and microbiology data reviewed. Stool culture is negative. Blood culture is negative. PROBLEMS: Possible infectious diarrhea, immunocompromised, kidney transplantation status, and multiple other comorbidities. PLAN: Continued monitoring. Follow up on renal function, electrolytes. Intake, output, weight will be monitored. The patient remains on Prograf and CellCept. We will follow up. If discharged, will need adjustment of doses of medicine. Continued followup. Condition remains guarded. Please avoid contrast and nonsteroidal drugs. TID: [id number] RECEIPT: [id number]
[2025-05-08] MEDS ORDERED: LEVO-70 PO (13:34)
== END 2025-05-07 15:20 | disposition home or self-care (01) | DRG 391 ==
LOC: EDH 08:31 → EDHIP 11:01 → 3AH 17:50
PROVIDERS: ADMIT Internal Medicine; ATTEND Internal Medicine
DX: K52.9 Noninfective gastroenteritis and colitis, unspecified (principal); N17.0 Acute kidney failure with tubular necrosis; E78.00 Pure hypercholesterolemia, unspecified; Y83.0 Surgical operation with transplant of whole organ as the cause of abnormal reaction of the patient, or of later complication, without mention of misadventure at the time of the procedure; E11.22 Type 2 diabetes mellitus with diabetic chronic kidney disease; E66.9 Obesity, unspecified; E86.0 Dehydration; Z79.60 Long term (current) use of unspecified immunomodulators and immunosuppressants; Z68.26 Body mass index [BMI] 26.0-26.9, adult; Z83.3 Family history of diabetes mellitus; Z91.199 Patient's noncompliance with other medical treatment and regimen due to unspecified reason
CPT/HCPCS: 36415; 74176; 76770; 80048; 80051; 80053; 80197; 81001; 82550; 82570; 82948; 83036; 83630; 83735; 83935; 84100; 84145; 84300; 85025; 85027; 86140; 87040; 87046; 87177; 87324; 87328; 87329; 87507; 99285; G0378; J0360; J0696; J1650; J1815; J2270; J2405; J2470; J3475; J7030; J7507; J7512; J7517